=== PATIENT | female | born 1950 | race Hispanic/Latino ===

== ENCOUNTER 2021-08-19 23:15 | Inpatient (IN) | payer OTHER ==
--- OUTSIDE RECORDS SUMMARY | 2021-08-20 00:35 | XMS REPORT | Continuity of Care Document ---
:1950 Author Organization [facility] t Address [address] [place] [address] Care Team Providers Name Role Phone Pcp-None Primary Care Physician Unavailable SAL Attending Clinician Unavailable AMBIKA Attending Clinician Unavailable ANA LUISA Attending Clinician Unavailable Leslie Finnegan Attending Clinician Unavailable IHDE_G Attending Clinician Unavailable Ninfa_laxmi Attending Clinician Unavailable Doctor Unassigned, Name Attending Clinician Unavailable Ninfa VERA Attending Clinician Noe LINN Attending Clinician Unavailable Mukul MENDOZA Attending Clinician Unavailable DR DAYTON Attending Clinician Unavailable Tone MENDOZA, Jenny Attending Clinician Bart LINN Attending Clinician Unavailable Laura Hoffman Attending Clinician Laura CANAS Attending Clinician Unavailable Robby Attending Clinician Unavailable MELVI Attending Clinician Unavailable SAL Admitting Clinician Unavailable AMBIKA Admitting Clinician Unavailable MD Rebekah SANDS Admitting Clinician Unavailable ANA LUISA Admitting Clinician Unavailable Leslie Finnegan Admitting Clinician Unavailable IHDE_G Admitting Clinician Unavailable Obken_laxmi Admitting Clinician Unavailable DR DAYTON Admitting Clinician Unavailable MELVI Admitting Clinician Unavailable Payers Payer Name Policy Type Policy Number Effective Date Expiration Date S chauncey [place] [id number] 2013 [employer] 00:00:00 - RHC - FQHC [place]: [id number] 2013 [employer] 00:00:00 Problems Condition Condition Condition Status Onset Resolution Last Treating Co mments Source Name Details Category Date Date Treatment Clinician Date Automatic Automatic Problem Active [place] implantabl Implantabl 2-12 da e cardiac e Cardiac 00:00: Epis manager copy defibrilla Defibrilla 00 al tor in tor in Health situ Situ Outreac h Program Anemia in Anemia in Problem Active [place] chronic Chronic 2-10 da kidney Kidney 00:00: [facility] disease Disease 00 al [facility] Hemodialys Hemodialys Problem Active [facility] is is 8-01 da 00:00: [facility] Hypertensi Hypertensi Problem Active [facility] [place] ve end ve End 8-01 da stage Stage 00:00: [facility] renal Renal 00 al disease Disease Health Outreac h Program CKD CKD Disease Active Overview: Method i (chronic (chronic 6-[address] kidney kidney 00:00: g of this Hospita disease) disease) 00 note l stage 4, stage 4, might be GFR 15-29 GFR 15-29 different ml/min ml/min from the original. Added automatic ally from request for surgery [id number] Nuclear Nuclear Problem Active [place] sclerotic Sclerotic 5-26 da cataract Cataract 00:00: [facility] 00 al [facility] Hypermetro Hypermetro Problem Active [facility] [place] erika erika 5-26 da 00:00: [facility] 00 [facility] Regular Regular Problem Active [place] astigmatis Astigmatis 5-26 da m m 00:00: [facility] Presbyopia Presbyopia Problem Active 2020-0 M [facility] 5-26 da 00:00: [facility] 00 [facility] Bilateral Bilateral Problem Active [place] primary Primary 5-26 da open angle Open Angle 00:00: [facility] glaucoma Glaucoma 00 al Health Outreac h Program Perennial Perennial Problem Active [place]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 4-15 da rhinitis Rhinitis 00:00: [facility] with with 00 al seasonal Seasonal Health variation Variation Outr eac h Program Diabetes Diabetes Problem Active [place] mellitus Mellitus da [facility] Hyperlipid Hyperlipid Problem Active [facility] emia emia da [facility] Obesity Obesity Problem Active [place] [facility] No known No known Disease Unive rs active active ity of problems problems [facility] Allergies, Adverse Reactions, Alerts Allergy Allergy Status Severity Reaction(s) Onset Inactive Treating Comm ents Source Name Type Date Date Clinician [place] DA Active Unknown [place] ins 7 Medical 00:00: [place] 00 [place] Propensi Active Other (See Numbing M ethodi ins ty to Comments) 6-[address] adverse 00:00: Hospita reaction 00 l s to drug [facility] Drug Active Swelling 2020-0 Univer s in Allergy 5-25 ity of 00:00: [address] PENICILL DRUG Active Swelling 0 Univer s IN INGREDI 5-25 ity of 00:00: [address] No Known DA Active [facility] Allergy Active Mild Other [place] INS to da substanc [facility] NO KNOWN Drug Active Univers ALLERGIE Class ity of S [facility] Social History Social Habit Start Date Stop Date Quantity Comments Source History of Smoker University of tobacco use [facility] [place] History SDOH University o f Alcohol Frequency [facility] edical Branch History SDOH University o f Alcohol Std [facility] History [facility] University o f Alcohol Binge [facility] al [place] Tobacco use and 2020-07-22 2020-07-22 Never used Universit y of exposure 00:00:00 00:00:00 [facility] Alcohol intake 2020-07-22 2020-07-22 Ex-drinker University of 00:00:00 00:00:00 (finding) [facility] Alcohol Comment 2020-07-22 2020-07-22 quit [facility] y of 00:00:00 00:00:00 [facility] Sex Ass[birth year] [facility] y of 00:00:00 00:00:00 [facility] Smoking Status Start Date Stop Date Source Unknown if ever smoked [facility] Former smoker 2020-07-22 00:00:00 2020-07-22 00:00:00 [facility] Medications Ordered Filled Start Stop Current Ordering Indication Dosage Frequency Signature Comments Components Source Medication Medication Date Date Medication? Clinician (SIG) Name Name timolol Yes timolol [facility] (TIMOPTIC) 6-[address] 0.5 % 18:21: 0.5 % eye Hospita ophthalmic 10 drops l solution INSTILL 1 GTT OU IN THE MORNING isosorbide Yes isosorbide M ethodi mononitrate -[address] (IMDUR) 60 18:21: e ER 60 mg H ospita MG 24 hr 10 tablet,ext l tablet ended release 24 hr TAKE 1 TABLET BY MOUTH ONCE DAILY FOR HIGH BLOOD PRESSURE multivitami Yes 1{tbl} Take 1 Me thodi n-Ca-iron-m 6-[address] inerals 18:21: mouth. Hospita tablet 10 l lovastatin Yes lovastatin M ethodi (MEVACOR) 6-[address] 40 mg 18:21: tablet Hospita tablet 10 TAKE TWO l (2) TABLETS EVERY DAY BY ORAL ROUTE AT BEDTIME. clopidogreL Yes clopidogre [facility] (PLAVIX) 75 6-[address] mg tablet 18:21: tablet Hospit a 10 TAKE 1 l TABLET BY MOUTH ONCE DAILY FOR ANTIPLATEL ET aspirin Yes 81mg Take 81 mg Meth eveline (ECOTRIN) 6-[address] 81 MG 18:21: Hospita enteric 10 l coated tablet SITagliptin Yes Januvia Met hodi (Januvia) 6-[address] 100 MG 18:21: tablet Hospita tablet 10 Take 1 l tablet(s) every day by oral route. aspirin 81 aspirin 81 No 81mg aspirin 81 [place] mg mg 6-16 mg da tablet,cristina tablet,cristina 00:00: tablet,del [facility] yed release yed release 00 ayed a l 81 mg by 81 mg by release He alth oral route. oral route. 81 mg by Outreac oral h route. Program No known No Univers medications 5-26 ity of 17:39: [address] No known No Univers medications - ity of 17:39: [address] No known No Univers medications - ity of 17:39: [address] hydrALAZINE Yes hydralazin [facility] (APRESOLINE 5-[address] ) 25 MG 00:00: tablet Hospita tablet 00 TAKE 1 l TABLET BY MOUTH THREE TIMES DAILY furosemide Yes furosemide M ethodi (LASIX) 40 2-[address] mg tablet 00:00: tablet Hospit a 00 TAKE 1 l TABLET BY MOUTH EVERY 8 HOURS FOR CHF NIFEdipine 2018-02 Yes 90mg Take 90 mg M ethodi CC (ADALAT 1-[address] CC) 90 MG 00:00: Hospita 24 hr 00 l tablet linaGLIPtin Yes Tradjenta M ethodi (Tradjenta) 8-[address] 5 mg tablet 00:00: tablet Hosp gomez 00 TAKE 1 l TABLET EVERY DAY FOR DIABETES atorvastati atorvastati No 1 Q1D atorvastat [place] n 20 mg n 20 mg in 20 mg da tablet Take tablet Take tablet [facility] 1 tablet 1 tablet Take 1 al every day every day tablet Hea lth by oral by oral every day Outr eac route for route for by oral h 30 days. 30 days. route for Pr ogram 30 days. clopidogrel clopidogrel No clopidogre [place] 75 mg 75 mg l 75 mg da tablet TAKE tablet TAKE tablet [facility] 1 TABLET BY 1 TABLET BY TAKE 1 al MOUTH ONCE MOUTH ONCE TABLET BY Health DAILY FOR DAILY FOR MOUTH ONCE Outreac ANTIPLATELE ANTIPLATELE DAILY FOR h T T ANTIPLATEL Program ET Januvia 50 Januvia 50 No 1 Q1D Januvia 50 [place] mg tablet mg tablet mg tablet da Take 1 Take 1 Take 1 [facility] tablet tablet tablet al every day every day every day Health by oral by oral by oral Outrea c route. route. route. h Program lisinopril lisinopril No lisinopril [place] 2.5 mg 2.5 mg 2.5 mg da tablet TAKE tablet TAKE tablet [facility] 1 TABLET BY 1 TABLET BY TAKE 1 al MOUTH ONCE MOUTH ONCE TABLET BY Health DAILY FOR DAILY FOR MOUTH ONCE Outreac HIGH BLOOD HIGH BLOOD DAILY FOR h PRESSURE PRESSURE HIGH BLOOD P rogram PRESSURE metoprolol metoprolol No metoprolol [place] tartrate 25 tartrate 25 tartrate da mg tablet mg tablet 25 mg Epis manager copy TAKE 1 2 TAKE 1 2 tablet al (ONE HALF) (ONE HALF) TAKE 1 2 Health TABLET BY TABLET BY (ONE HALF) Outreac MOUTH TWICE MOUTH TWICE TABLET BY h DAILY FOR DAILY FOR MOUTH Prog geoffrey HYPERTENSIO HYPERTENSIO TWICE N N DAILY FOR HYPERTENSI ON multivitami multivitami No multivitam [place] n 1 tab po n 1 tab po in 1 tab da daily daily po daily [facility] Novolin Novolin No Novolin [place] 70/30 U-100 70/30 U-100 70/30 da Insulin 100 Insulin 100 U-100 [facility] unit/mL unit/mL Insulin al subcutaneou subcutaneou 100 H ealth s s unit/mL Outreac suspension suspension subcutaneo h INJECT 15 INJECT 15 us Progr am UNITS UNITS suspension SUBCUTANEOU SUBCUTANEOU INJECT 15 SLY TWICE SLY TWICE UNITS DAILY FOR DAILY FOR SUBCUTANEO DM2 DM2 USLY TWICE DAILY FOR DM2 trazodone trazodone No trazodone [place] 50 mg 50 mg 50 mg da tablet TAKE tablet TAKE tablet [facility] 1 TABLET BY 1 TABLET BY TAKE 1 al MOUTH ONCE MOUTH ONCE TABLET BY Health DAILY AT DAILY AT MOUTH ONCE O utrea NIGHT NIGHT DAILY AT h NIGHT Program vitamin B vitamin B No vitamin B [place] complex 1 complex 1 complex 1 da tab po QD tab po QD tab po QD [facility] Vitamin D3 Vitamin D3 No Vitamin D3 [place] 1 tab po 1 tab po 1 tab po da daily daily daily [facility] Immunizations Ordered Immunization Filled Immunization Date Status Commen ts Source Name Name Hep B, adult Hep B, adult 2021-01-30 Completed [place] 09:49:37 [facility] pneumococcal pneumococcal 2020-11-28 Completed [place] conjugate PCV 13 conjugate PCV 13 00:00:00 [facility] influenza, influenza, 2020-11-28 Completed [place] injectable, injectable, 00:00:00 [facility] Hep B, adult Hep B, adult 2020-08-27 Completed [place] 15:41:37 [facility] Hep B, adult Hep B, adult 2020-07-23 Completed [place] 14:52:22 [facility] influenza, influenza, 2016-11-28 Completed [place] injectable, injectable, 00:00:00 [facility] pneumococcal pneumococcal 2012-03-12 Completed [place] polysaccharide PPV23 polysaccharide PPV23 00:00:00 [facility] Vital Signs Vital Name Observation Time Observation Value Comments Source Height 2021-07-07 00:00:00 66 [in_i] [place] [facility] BMI (Body Mass 2021-07-07 00:00:00 32.8 kg/m2 [place] 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 Index) [facility] Body Weight 2021-07-07 00:00:00 203 [lb_av] [place] [facility] BP Diastolic 2021-04-30 00:00:00 76 mm[Hg] [place] [facility] Height 2021-04-30 00:00:00 66 [in_i] [place] [facility] BMI (Body Mass 2021-04-30 00:00:00 32.8 kg/m2 [place] 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 Index) [facility] BP Systolic 2021-04-30 00:00:00 146 mm[Hg] [place] [facility] Body Weight 2021-04-30 00:00:00 3248 [oz_av] [place] [facility] BP Diastolic 2021-04-21 00:00:00 72 mm[Hg] [place] [facility] Height 2021-04-21 00:00:00 66 [in_i] [place] [facility] BMI (Body Mass 2021-04-21 00:00:00 33 kg/m2 [place] 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 Index) [facility] BP Systolic 2021-04-21 00:00:00 132 mm[Hg] [place] [facility] Body Weight 2021-04-21 00:00:00 3270 [oz_av] [place] [facility] BP Diastolic 2021-01-29 00:00:00 85 mm[Hg] [place] [facility] Height 2021-01-29 00:00:00 66 [in_i] [place] [facility] BMI (Body Mass 2021-01-29 00:00:00 32.4 kg/m2 [place] 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 Index) [facility] BP Systolic 2021-01-29 00:00:00 149 mm[Hg] [place] [facility] Body Weight 2021-01-29 00:00:00 3216 [oz_av] [place] [facility] BP Diastolic 2020-12-16 00:00:00 93 mm[Hg] [place] [facility] Height 2020-12-16 00:00:00 66 [in_i] [place] [facility] BMI (Body Mass 2020-12-16 00:00:00 33.5 kg/m2 [place] 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 Index) [facility] BP Systolic 2020-12-16 00:00:00 156 mm[Hg] [place] [facility] Body Weight 2020-12-16 00:00:00 3321.6 [oz_av] [place] 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 [facility] BP Diastolic 2020-12-02 00:00:00 84 mm[Hg] [place] [facility] Height 2020-12-02 00:00:00 66 [in_i] [place] [facility] BMI (Body Mass 2020-12-02 00:00:00 33.9 kg/m2 [facility] 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 Index) [facility] BP Systolic 2020-12-02 00:00:00 147 mm[Hg] [place] [facility] Body Weight 2020-12-02 00:00:00 3360 [oz_av] [place] [facility] BP Diastolic 2020-10-02 00:00:00 73 mm[Hg] [place] [facility] Height 2020-10-02 00:00:00 66 [in_i] [place] [facility] BMI (Body Mass 2020-10-02 00:00:00 36 kg/m2 [facility] 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 Index) [facility] BP Systolic 2020-10-02 00:00:00 123 mm[Hg] [place] [facility] Body Weight 2020-10-02 00:00:00 3568 [oz_av] [place] [facility] Weight 2020-09-09 06:14:00 102.05 KG Weight 2020-09-08 06:14:00 101.65 KG Weight 2020-09-07 04:23:00 101.83 KG Height 2020-09-05 10:21:00 165.1 CM Height 2020-09-04 23:51:00 2.54 CM Height 2020-09-03 10:00:00 165.1 CM Weight 2020-09-03 03:38:00 106.14 KG BP Diastolic 2020-06-02 00:00:00 75 mm[Hg] [place] [facility] Height 2020-06-02 00:00:00 66 [in_i] [place] [facility] BMI (Body Mass 2020-06-02 00:00:00 36.2 kg/[facility]2 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 BP Systolic 2020-06-02 00:00:00 154 mm[Hg] [place] [facility] Body Weight 2020-06-02 00:00:00 3584 [oz_av] [place] [facility] BP Diastolic 2020-04-25 00:00:00 71 mm[Hg] [place] [facility] Height 2020-04-25 00:00:00 66 [in_i] [place] [facility] BMI (Body Mass 2020-04-25 00:00:00 37.8 kg/m2 [place] 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 Index) [facility] BP Systolic 2020-04-25 00:00:00 136 mm[Hg] [place] [facility] Body Weight 2020-04-25 00:00:00 3744 [oz_av] [place] [facility] BP Diastolic 2020-03-04 00:00:00 60 mm[Hg] [place] [facility] Height 2020-03-04 00:00:00 66 [in_i] [place] [facility] BMI (Body Mass 2020-03-04 00:00:00 38.3 kg/m2 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 BP Systolic 2020-03-04 00:00:00 140 mm[Hg] [place] [facility] Body Weight 2020-03-04 00:00:00 3792 [oz_av] [place] [facility] BP Diastolic 2019-12-14 00:00:00 76 mm[Hg] [place] [facility] Height 2019-12-14 00:00:00 66 [in_i] [place] [facility] BMI (Body Mass 2019-12-14 00:00:00 40.7 kg/m2 [place] 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 Index) [facility] BP Systolic 2019-12-14 00:00:00 148 mm[Hg] [place] [facility] Body Weight 2019-12-14 00:00:00 4032 [oz_av] [place] [facility] BP Diastolic 2019-09-14 00:00:00 72 mm[Hg] [place] [facility] Height 2019-09-14 00:00:00 66 [in_i] [place] [facility] BMI (Body Mass 2019-09-14 00:00:00 39.8 kg/m2 [place] 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 Index) [facility] BP Systolic 2019-09-14 00:00:00 138 mm[Hg] [place] [facility] Body Weight 2019-09-14 00:00:00 3942 [oz_av] [place] [facility] Height 2019-07-24 00:00:00 66 [in_i] [place] [facility] BMI (Body Mass 2019-07-24 00:00:00 41.5 kg/m2 [place] 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 Index) [facility] Body Weight 2019-07-24 00:00:00 257 [lb_av] [place] [facility] BP Diastolic 2019-06-13 00:00:00 70 mm[Hg] [place] [facility] Height 2019-06-13 00:00:00 66 [in_i] [place] [facility] BMI (Body Mass 2019-06-13 00:00:00 41.6 kg/m2 [place] 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 Index) [facility] BP Systolic 2019-06-13 00:00:00 130 mm[Hg] [place] [facility] Body Weight 2019-06-13 00:00:00 257.8 [lb_av] [place] [facility] BP Diastolic 2019-03-07 00:00:00 80 mm[Hg] [place] [facility] Height 2019-03-07 00:00:00 66 [in_i] [place] [facility] BMI (Body Mass 2019-03-07 00:00:00 39.9 kg/m2 [place] 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 Index) [facility] BP Systolic 2019-03-07 00:00:00 140 mm[Hg] [place] [facility] Body Weight 2019-03-07 00:00:00 247 [lb_av] [place] [facility] BP Diastolic 2019-01-16 00:00:00 68 mm[Hg] [place] [facility] Height 2019-01-16 00:00:00 66 [in_i] [place] [facility] BMI (Body Mass 2019-01-16 00:00:00 42.6 kg/m2 [place] 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 Index) [facility] BP Systolic 2019-01-16 00:00:00 136 mm[Hg] [place] [facility] Body Weight 2019-01-16 00:00:00 264 [lb_av] [place] [facility] Systolic blood 2020-08-13 18:05:00 163 mm[Hg] [facility] pressure Diastolic blood 2020-08-13 18:05:00 77 mm[Hg] [facility] pressure Heart rate 2020-08-13 18:05:00 66 /min [facility] Body temperature 2020-08-13 18:05:00 36.56 [facility] Body height 2020-08-13 18:05:00 167.6 cm [facility] Body weight 2020-08-13 18:05:00 101.152 kg [facility] BMI 2020-08-13 18:05:00 35.99 kg/m2 [facility] Oxygen saturation in 2020-08-13 18:05:00 97 /min [facility] Arterial blood by Pulse oximetry Procedures Procedure Date / Time Performing Clinician Source Performed EXTERNAL PROVIDER RECORDS 2020-11-23 05:01:00 Doctor Unassigned, [facility] REFERRAL- REQUEST/RESPONSE 2020-10-16 05:01:00 Doctor Unassigned , [facility] INSERTION INFUS DEVC RT 2020-09-09 00:00:00 [facility] Medical [facility] RESPIRATORY VENT [id number] 2020-09-03 00:00:00 [facility] Medical CONSEC HOURS Center MAMMO, screening, 2019-03-07 00:00:00 [facility] Cholecystectomy [facility] Plan of Care Planned Activity Planned Date Details Comments Source Future Scheduled Test DIABETES: RETINAL EYE [facility] EXAM [code = DIABETES: RETINAL EYE EXAM] Future Scheduled Test DIABETIC FOOT EXAM [facility] [code = DIABETIC FOOT EXAM] Future Scheduled Test COVID-19 VACCINE (1) [facility] [code = COVID-19 VACCINE (1)] Future Scheduled Test Hepatitis C screening [facility] (procedure) [code = 007131109] Future Scheduled Test BREAST CANCER SCREENING [facility] [code = BREAST CANCER SCREENING] Future Scheduled Test COLONOSCOPY SCREENING [facility] [code = COLONOSCOPY SCREENING] Future Scheduled Test SHINGLES VACCINES (#1) [facility] [code = SHINGLES VACCINES (#1)] Future Scheduled Test 65+ PNEUMOCOCCAL [facility] VACCINE (2 of 4 - PPSV23) [code = 65+ PNEUMOCOCCAL VACCINE (2 of 4 - PPSV23)] Future Scheduled Test INFLUENZA VACCINE [code [facility] = INFLUENZA VACCINE] Encounters Start End Encounter Admission Attending Care Care Encounter Source Date/Time Date/Time Type Type Clinicians Facility Department ID 2021-07-31 2021-07-31 Outpatient YONY CRISTINA MEHOP [id number] 05:21:00 05:21:00 _ANN [id number] [facility] 2021-07-28 2021-07-28 Outpatient [facility] [id number] 00:00:00 00:00:[address] 2021-07-07 2021-07-07 Outpatient SHIMEK_[place] [id number] [place] 02:14:00 02:14:00 _ANN 0510 [facility] 2021-07-07 2021-07-07 Emy [facility] - [id number] [place] 00:00:00 00:00:00 Liudmila Medeiros MD: [address], [facility] [place] [facility] [place], [place] Eye [facility] [id number] [facility] , Ph. h ([phone]) Program 2021-06-23 2021-06-23 [id number] 00:00:00 00:00:00 KYLE 768 [address] i 2021-06-18 2021-06-18 Outpatient AMBIKA [facility] [id number] 00:00:00 00:00:00 KYLE 871 Method i 2021-06-18 2021-06-18 Outpatient AMBIKA [facility] [id number] 00:00:00 00:00:00 KYLE 397 Method i 2021-06-11 2021-06-11 Outpatient DIYA_FANNY [place] [id number] [place] 09:42:00 09:42:00 _ANN 0414 [facility] 2021-06-11 2021-06-11 Outpatient AMBIKA [facility] [id number] [place] 00:00:00 00:00:00 KYLE 113 Method i 2021-05-19 2021-05-19 Outpatient DIYA_FANNY [place] [id number] [place] 12:40:00 12:40:00 _ANN 0406 [facility] 2021-05-08 2021-05-08 Outpatient DIYA_FANNY [facility] [id number] [place] 11:22:00 11:22:00 _ANN 0317 [facility] 2021-04-30 2021-04-30 Outpatient DIYA_FANNY [facility] [id number] [place] 02:38:00 02:38:00 _ANN 0303 [facility] 2021-04-30 2021-04-30 Fanny Lyons C[place]ST[place] - 3 [place] 00:00:00 00:00:00 Liudmila Eduardo da LICENSED PHYSICAL THERAPY ASSISTANT: [address] [facility] [place] [facility] [place] [id number] h , Ph. Program 2021-04-21 2021-04-21 Outpatient GILBERT_KAT [place] [id number] [place] 02:15:00 02:15:00 IE 0302 [facility] 2021-04-21 2021-04-21 Outpatient GILBERT_KAT [place] [id number] [place] 02:11:00 02:11:00 IE 0222 [facility] 2021-04-21 2021-04-21 Fanny Lyons [place] - [id number] [place] 00:00:00 00:00:00 Liudmila Eduardo da LICENSED PHYSICAL THERAPY ASSISTANT: [address] [facility] [place] 3 [place] [address] h , Ph. Program 2021-02-28 2021-02-28 Outpatient [place]HDE_[place] [id number] [place] 03:03:00 03:03:00 0101 [facility] 2021-02-02 2021-02-02 Outpatient GILBERT_KAT [place] [address] [place] 04:02:00 04:02:00 IE [facility]6 [facility] 2021-02-02 2021-02-02 Outpatient GILBERT_KAT [place] [address] [place] 04:02:00 04:02:00 IE 0217 [facility] 2021-01-29 2021-01-29 Outpatient Obisesan_ad ARHOP [facility] 87 [place] 07:22:00 07:22:00 ekunbi 1202 [facility] 2021-01-29 2021-01-29 [facility] [place] - [id number] [place] 00:00:00 00:00:00 Liudmila Wallace REFRACTORY REPAIRER-LICENSED PHYSICAL THERAPY ASSISTANT-C: Faith Epi scop 1700 [facility] [address] [facility] , Ph. 2021-01-24 2021-01-24 Outpatient IHDE_G MMG MMG [id number] 021 [place] 02:21:00 02:21:00 1127 Medical Group 2020-12-31 2021-01-01 Outpatient [facility] [id number] [place] 00:00:00 00:00:00 KYLE Stafford [facility] 2020-12-20 2020-12-20 Outpatient IHDE_G MMG MMG [id number] 021 [place] 03:45:00 03:45:00 1023 Medical Group 2020-12-16 2020-12-16 Outpatient Obisesan_ad [place] [address] [place] 04:47:00 04:47:00 ekunbi 1019 [facility] 2020-12-16 2020[facility]12-[facility] [place] [facility] [id number] [place] 00:00:00 00:00:00 Liudmila Ocasio LICENSED PHYSICAL THERAPY ASSISTANT: 1700 [facility] [address] h , Ph. Program 2020-12-12 2020-12-12 Outpatient Obisesan_ad [place] [address] [place] 05:47:00 05:47:00 ekunbi 1015 [facility] 2020-12-02 2020-12-02 Outpatient Obisesan_ad [place] [address] [place] 05:29:00 05:29:00 ekunbi 1005 [facility] 2020-12-02 2020-12-02 [facility] [place] [facility] [id number] [place] 00:00:00 00:00:00 Liudmila Ocasio LICENSED PHYSICAL THERAPY ASSISTANT: 1700 [facility] [address] [facility] , Ph. Program 2020-11-23 2020-11-23 Orders Doctor GORDON 1.2.840.114 [id number] Univers 00:00:00 00:00:00 Only Unassigned, PATY 350.1.13.10 ity of [place] [facility] 4.2.7.2.686 [place] as [id number] [facility] 009 Branch 2020-11-19 2020-11-19 Letter HEIDI Ocasio 1.2.994.206 [id number] [facility] 00:00:00 00:00:00 (Out) Laxmi NEWMAN 350.1.13.10 i ty of HOSPITAL 4.2.7.2.686 [place] as [id number] [facility] 043 Branch 2020-10-28 2020-10-28 Telephone Liu, 1.2.840.1 [id number] Methodi 00:00:00 00:00:[address] 3.430.2.7 Hospit a .3.087394 l .8 2020-10-23 2020-10-23 Telephone Mukul, 1.2.840.1 [id number] Methodi 00:00:00 00:00:[address] 3.430.2.7 Hospit a .3.520270 l .8 2020-10-17 2020-10-17 Outpatient IHDE_G MMG MMG [id number] 021 [place] 11:33:00 11:33:00 0927 [facility] 2020-10-17 2020-10-17 Outpatient IHDE_G MMG MMG [id number] 021 [place] 11:33:00 11:33:00 0820 [facility] 2020-10-16 2020-10-16 Orders Doctor GORDON 1.2.840.114 [id number] Univers 00:00:00 00:00:00 Only Unassigned, PATY 350.1.13.10 ity of [place] [facility] 4.2.7.2.686 [facility] as [id number] [address] 2020-10-14 2020-10-14 Outpatient Obisesan_ad [place] [address] [place] 09:34:00 09:34:00 ekunbi 0817 [facility] 2020-10-13 2020-10-13 Outpatient Obisesan_ad [place] [address] [place] 03:59:00 03:59:00 ekunbi 0816 [facility] 2020-10-02 2020-10-02 Outpatient Obisesan_ad [place] [address] [place] 04:22:00 04:22:00 ekunbi 0805 [facility] 2020-10-02 2020-10-02 Adekunbi [facility] - [id number] [place] 00:00:00 00:00:00 Liudmila Ocasio da 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 Program 2020-09-24 2020-09-24 Outpatient Obisesan_ad [place] [address] [place] 03:16:00 03:16:00 ekunbi 0728 [facility] 2020-09-09 2020-09-09 Telephone Gilman, 1.2.840.1 [id number] Methodi 00:00:00 00:00:00 Bouchra 42214.1.1 914 3.430.2.7 Hospit a .3.769958 l .8 2020-09-03 2020-09-03 Outpatient Obisesan_ad [place] [address] [place] 01:18:00 01:18:00 ekunbi 0707 [facility] 2020-09-02 2020-09-02 Outpatient Obisesan_ad MEHOP [facility] 876 [place] 10:14:00 10:14:00 ekunbi 0706 [facility] 2020-08-27 2020-08-27 Outpatient Obisesan_ad MEHOP AR[facility]OP 876 [place] 05:50:00 05:50:00 ekunbi 0630 [facility] 2020-08-27 2020-08-27 Adekunbi [place] - [id number] [place] 00:00:00 00:00:00 ObLiudmila rogers da LICENSED PHYSICAL THERAPY ASSISTANT: 1700 [facility] [place], [place], [place] Outre [address] h , Ph. Program 2020-08-22 2020-08-22 Outpatient Obisesan_ad MEHOP ARHOP 876 [place] 04:45:00 04:45:00 ekunbi 0625 [facility] 2020-08-18 2020-08-18 Telephone Mukul, 1.2.840.1 [id number] 21 [id number] Methodi 00:00:00 00:00:[address] 3.430.2.7 Hospit a .3.196829 l .8 2020-08-15 2020-08-15 Outpatient Obisesan_ad ARHOP [facility] 87 [place] 06:46:00 06:46:00 ekunbi 0618 [facility] 2020-08-13 2020-08-13 Office Wayne, 1.2.840.1 [id number] Methodi 13:06:24 14:03:21 Visit Elsa 02784.1.[address] [place] 3.430.2.7 Hosp gomez .3.378210 l .8 2020-08-13 2020-08-13 Prep for Mukul 1.2.840.1 [id number] [id number] Methodi 00:00:00 00:00:00 Surgery Bouchra [address]265.1.[address] 3.430.2.7 Hospit a .3.287814 l .8 2020-08-13 2020-08-13 Travel 1.2.840.1 1.2.422.172 [id number] Methodi 00:00:00 00:00:[address] 3.430.2.7 0.2.7.3.698 Ho spita .3.128476 084.8 l .8 2020-08-12 2020-08-12 Outpatient Obisesan_ad [place] [address] [place] 09:12:00 09:12:00 ekunbi 0615 [facility] 2020-07-30 2020-07-30 Anurag Arriaga, 1.2.840.1 [id number] Methodi 00:00:00 00:00:00 Only Crysandria 03525.1.1 200 s t 3.430.2.7 Hospit a .3.566701 l .8 2020-07-23 2020-07-23 Outpatient Obisesan_ad [place] [address] [place] 05:43:00 05:43:00 ekunbi 0526 [facility] 2020-07-23 2020-07-23 Outpatient Obisesan_ad [place] [address] [place] 05:43:00 05:43:00 ekunbi 0528 [facility] 2020-07-23 2020-07-23 [facility] [place] [facility] [id number] M [place] 00:00:00 00:00:00 Liudmila Ni MD: 1700 [facility] Romo, [place], [place] Outre [address] h , Ph. Program 2020-07-22 2020-07-22 Office Canas, [facility] 1.2.840.114 [id number] 13:18:19 13:48:19 Visit [facility] 350.1.13.10 [facility] 4.2.7.2.686 [id number] 2020-07-22 2020-07-22 Outpatient R NORMA, [facility] [id number] Univers 13:45:00 13:45:[address] [facility] 2020-07-22 2020-07-22 [facility] [id number] Univers 00:00:00 00:00:[address] [facility] 2020-07-22 2020-07-22 Orders Arriaga, 1.2.840.1 [id number] Methodi 00:00:00 00:00:00 Only [place] 67476.1.1 095 s t 3.430.2.7 Hospit a .3.137707 l .8 2020-07-17 2020-07-17 Telephone Robby, 1.2.840.1 [id number] Methodi 00:00:00 00:00:[address] 3.430.2.7 Hospit a .3.633767 l .8 2020-07-17 2020-07-17 Orders Arriaga, 1.2.840.1 [id number] Methodi 00:00:00 00:00:00 Only [place] 59168.1.1 881 s t 3.430.2.7 Hospit a .3.030107 l .8 2020-06-20 2020-06-20 Outpatient Obisesan_ad [place] [address] [place] 03:14:00 03:14:00 ekunbi 0524 [facility] 2020-06-02 2020-06-02 Outpatient Obisesan_ad [place] [address] [place] 04:38:00 04:38:00 ekunbi 0405 [facility] 2020-06-02 2020-06-[address] [facility] [place] [facility] [id number] [place] 00:00:00 00:00:00 Liudmila Ocasio da LICENSED PHYSICAL THERAPY ASSISTANT: [address] [facility] [address], [facility] [address] h , Ph. Program 2020-04-25 2020-04-25 Outpatient Obisesan_ad ARHOP AR[facility]OP 87 [place] 04:46:00 04:46:00 ekunbi 0226 [facility] 2020-04-25 2020-04-[address] [facility] [place] - [id number] [place] 00:00:00 00:00:00 Liudmila Ocasio da LICENSED PHYSICAL THERAPY ASSISTANT: 1700 [facility] [address], [place], [place] Outre [address] h , Ph. Program 2020-04-05 2020-04-05 Outpatient Obisesan_ad ARHOP ARHOP 876 [place] 03:43:00 03:43:00 ekunbi 0206 [facility] 2020-03-19 2020-03-19 Outpatient [facility] 8769 [place] 12:56:00 12:56:00 0120 [facility] 2020-03-05 2020-03-05 Outpatient NEESE_HEIDI AR[facility]OP AR[facility]OP 8769 [place] 08:56:00 08:56:00 0106 [facility] 2020-03-04 2020-03-04 Outpatient NEESE_HEIDI MATHEWHOP ARHOP 8769 [place] 05:26:00 05:26:00 0105 [facility] 2020-03-04 2020-03-04 Laxmi [facility] [place] - [id number] [place] 00:00:00 00:00:00 Liudmila Ocasio da LICENSED PHYSICAL THERAPY ASSISTANT: 17[address] [facility] [address], [facility] [address] h , Ph. Program 2020-01-14 2020-01-14 Outpatient NEESE_HEIDI [place] 8769 [place] 06:23:00 06:23:00 0104 [facility] 2019-12-28 2019-12-28 Outpatient NEESE_HEIDI EVANS 8769 [place] 07:45:00 07:45:00 1030 [facility] 2019-12-14 2019-12-14 Outpatient NEESE_HEIDI EVANS 8769 [place] 04:34:00 04:34:00 1016 [facility] 2019-12-14 2019-12-14 Heidi EVANS [place] - [id number] [place] 00:00:00 00:00:00 FLORA Abel: Liudmila lyons [address] [facility] [address] h , Ph. Program 2019-09-14 2019-09-14 Outpatient NEESE_HEIDI [place]ANS 8769 [place] 02:57:00 02:57:00 0717 [facility] 2019-09-14 2019-09-14 Heidi EVANS [place] - [id number] [place] 00:00:00 00:00:00 FLORA Abel: Liudmila lyons [address] [facility] [place] [address] h , Ph. Program 2019-08-12 2019-08-12 Outpatient NEESE_HEIDI EVANS 8769 [place] 12:18:00 12:18:00 0614 [facility] 2019-07-24 2019-07-24 Outpatient NEESE_HEIDI EVANS 8769 [place] 05:19:00 05:19:00 0526 [facility] 2019-07-24 2019-07-24 Emy EVANS [place] - [id number] [place] 00:00:00 00:00:00 Liudmila Medeiros MD: [address], [facility] [place], [place] Eye [facility] [address] [facility] , Ph. h (979) Program 2019-07-09 2019-07-09 Outpatient NEESE_HEIDI EVANS [id number] 0 [place] 10:29:00 10:29:00 0511 [facility] 2019-07-09 2019-07-09 Outpatient NEESE_HEIDI EVANS 8769 0 [place] 10:29:00 10:29:00 0522 [facility] 2019-06-13 2019-06-13 Outpatient NEESE_HEDII EVANS 8769 0 [place] 11:55:00 11:55:00 0415 [facility] 2019-06-13 2019-06-13 Outpatient NEESE_HEIDI EVANS 8769 0 [place] 05:03:00 05:03:00 0416 [facility] 2019-06-13 2019-06-13 Heidi MATHEWBAKARI [place] - [id number] [place] 00:00:00 00:00:00 FLORA Abel: Liudmila lyons [address] [facility] [address], [place] [address] Out[place] [address] h , Ph. Program 2019-03-07 2019-03-07 Outpatient NEESE_HEIDI EVANS 8769 [place] 02:08:00 02:08:00 0108 [facility] 2019-03-07 2019-03-07 Heidi Charlie MATHE[place]BAKARI [place] - [id number] [place] 00:00:00 00:00:00 FLORA Abel: Liudmila lyons [address] [facility] [address], [facility] 3, [address] [address] [facility] , Ph. 2019-03-01 2019-03-01 Outpatient NEPRINCE_HEIDI EVANS [facility] 8769 [place] 12:30:00 12:30:00 0102 [facility] 2019-01-16 2019-01-16 Heidi EVANS [place] - [id number] [place] 00:00:00 00:00:00 FLORA Abel: Liudmila lyons [address] [facility] al A, [facility] [place] [address] [facility] am , Ph. Results Test Description Test Time Test Comments Results Result Comments Source SARS-CoV-2 (COVID-19) RNA [Presence] in Respiratory sp ecimen by 2021-06-18 18:39:45 BETTYE with probe detection Test Item Value Reference Range Interpretation Comme nts SARS-CoV-2 (COVID-19) RNA [Presence] in Respiratory specimen by Not detected BETTYE with probe detection (test code = 97129-3) Whether patient is employed in a healthcare setting (test code = Un known 64179-5) Whether the patient has symptoms related to condition of interest U nknown (test code = 17807-0) Whether the patient was hospitalized for condition of interest Unkn own (test code = 87161-3) Whether the patient was admitted to intensive care unit (ICU) for U nknown condition of interest (test code = 69383-6) Whether patient resides in a congregate care setting (test code = U nknown 32439-3) status (test code = 20727-3) Unknown Date and time of symptom onset (test code = 50772-3) Unknown Glucose [Mass/volume] in Capillary [id number] 11:00:54 Test Item Value Reference Range Interpretation Comments Blood Glucose: mg/dl (test code = Blood 158 Glucose: mg/dl) [facility] [Mass/volume] in Capillary [id number] 11:00:54 Test Item Value Reference Range Interpretation Comments Blood Glucose: mg/dl (test code = Blood 158 Glucose: mg/dl) [facility] ProgramGlucose [Mass/volume] in Capillary [id number] 11:00:54 Test Item Value Reference Range Interpretation Comments Blood Glucose: mg/dl (test code = Blood 158 Glucose: mg/dl) [facility] Outreach ProgramACID FAST AND STAIN [id number] 06:51:00 Test Item Value Reference Range Interpretation Comments SMEAR (test code = MYCOBAC TERIA, CULTURE, 03575039) WITH FLUOROCHRO ME SMEAR Micro Number: [id number] Test Status: Final Specimen Source : Sputum Specimen Qualit y: Adequate Smear: No acid fast bacilli se en. Result: No My cobacterium species isolate d after 6 weeks incubation.TEST PERFORMED AT:real trendsO [facility] [id number] [place] [address]BBUKE Mishel HOLBROOK MD GLUCOMETER GLUCOSE- LAB USE [id number] 16:04:00 Test Item Value Reference Range Interpretation Comments GLUCOMETER (test code = 292 mg/dL 70-100 H Mete r ID: GMG) [id number] tor: 3966 HELEN SHABANA U/S [id number] 15:53:07 [facility] : 1950 Sex: FEXAMINATION: NONTUNNELED CENTRAL VENOUS CATHETER PLACEMENT USING ULTRASOUND GUIDANCE.HISTORY: Need for IV antibiotics, request is made for central line, respiratory failure, pneumonia, obesity.COMPARISON: None.SEDATION: The patient did not require conscious sedation for the procedure.TECHNIQUE: The risks, benefits and alternatives were discussed and informed consent was obtained. Prior to beginning the procedure, [place] Protocol was used to confirm the patient's identity and planned procedure. Maximum sterile barriers including cap, mask, hand hygiene, sterile gloves, sterile gown, large steriledrape and cutaneous antisepsis were used. SITE: The skin over the right internal jugular vein was sterilely prepped, draped and infiltrated with 1% lidocaine. Prior to the procedure, the target vessel was evaluated by ultrasound. An image of the patent vessel was recorded and saved in PACS. After sterile prep, this vessel was accessed using realtime ultrasound guidance.A guidewire and catheter were t hen passed centrally. After dilating the tract, a 16 cm triple lumen central venous catheter was inserted over the guidewire. The catheter was flushed with saline and secured in place. A sterile dressing was applied. ESTIMATED BLOOD LOSS: less than 30 milliliters. DISCHARGED TO: Recovery and then to inpatient unit.CONDITION: Stable.FINDINGS: The post procedure chest x-ray image demonstrates the catheter with its tip in the right atrium. No complications are seen. IMPRESSION: Successful nontunneled triple lumen central venous catheter catheter placement via the right internal jugular vein.PLAN:The catheter is ready for immediate use. When treatment is completed, this catheter can be removed at the bedside according to standard hospital protocol.Electronically signed by: Dustin Vargas MD 09/09/2020 3:[address] [id number] 15:53:07 [facility] ESCOB[facility] : 1950 Sex: FEXAMINATION: NONTUNNELED CENTRAL VENOUS CATHETER PLACEMENT USING ULTRASOUND GUIDANCE.HISTORY: Need for IV antibiotics, request is made for central line, respiratory failure, pneumonia, obesity.COMPARISON: None.SEDATION: The patient did not require conscious sedation for the procedure.TECHNIQUE: The risks, benefits and alternatives were discussed and informed consent was obtained. Prior to beginning the procedure, [place] Protocol was used to confirm the patient's identity and planned procedure. Maximum sterile barriers including cap, mask, hand hygiene, sterile gloves, sterile gown, large steriledrape and cutaneous antisepsis were used. SITE: The skin over the right internal jugular vein was sterilely prepped, draped and infiltrated with 1% lidocaine. Prior to the procedure, the target vessel was evaluated by ultrasound. An image of the patent vessel was recorded and saved in PACS. After sterile prep, this vessel was accessed using realtime ultrasound guidance.A guidewire and catheter were t hen passed centrally. After dilating the tract, a 16 cm triple lumen central venous catheter was inserted over the guidewire. The catheter was flushed with saline and secured in place. A sterile dressing was applied. ESTIMATED BLOOD LOSS: less than 30 milliliters. DISCHARGED TO: Recovery and then to inpatient unit.CONDITION: Stable.FINDINGS: The post procedure chest x-ray image demonstrates the catheter with its tip in the right atrium. No complications are seen. IMPRESSION: Successful nontunneled triple lumen central venous catheter catheter placement via the right internal jugular vein.PLAN:The catheter is ready for immediate use. When treatment is completed, this catheter can be removed at the bedside according to standard hospital protocol.Electronically signed by: Dustin Vargas MD 09/09/2020 3:53 PM CDT CHEST 1 VIEW [id number] 15:40:27 [facility] ESCOB[facility] : 1950 Sex: FEXAMINATION: XR CHEST 1 VIEW.HISTORY: Long-term current use of antibiotic, CKD, obesity, pneumonia, status post central line placement.COMPARISON: Chest x-ray 09/08/20.FINDINGS:Examination is limited due to portable technique, patient body habitus and low lung volumes.Cardiac silhouette/Mediastinal contour: Persistent enlargement of cardiac silhouette. Atherosclerotic calcification of aortic arch.Lungs: No focal consolidation. No large pleural effusion. Pulmonary vascular congestion.Osseous Structures: Degenerative changes of thoracic spine.Additional Findings: Right-sided central line tip overlies right atrium..IMPRESSION: Right-sided central line tip overlies right atrium, okay to use.Electronically signed by: Dustin Vargas MD 09/09/2020 3:40 PM CDT [id number] GLUCOSE- LAB USE [id number] 12:04:00 Test Item Value Reference Range Interpretation Comments GLUCOMETER (test code = 229 mg/dL 70-100 H Mete r ID: GMG) [id number] tor: [address] [facility] COMPREHENSIVE METABOLIC [id number] 05:28:00 Test Item Value Reference Range Interpretation Comments GLUCOSE (test code 266 mg/dL 75-100 H = 06D) SODIUM (test code 137 mmol/L 136-145 = 01A) POTASSIUM (test 3.7 mmol/L 3.6-5.1 code = 01B) CHLORIDE (test 102 mmol/L 98-107 code = 04A) CO2 (test code = 26 mmol/L 22-32 02A) ANION GAP (test 12.7 mmol/L code = ANG) BUN (test code = 53 mg/dL 7-18 H 05D) CREATININE (test 2.8 mg/dL 0.4-1.1 H code = 03E) GFR (test code = 16 See_Comment L [Automated GFR) mL/min/1.73m\S\2 message] Th e system which generated this result transmit magen reference range : >=90. The reference range was not used to interpret this result as normal/abnormal . GFR 19 See_Comment L [Automated [place] (test mL/min/1.73m\S\2 message] The code = GFRAA) system which generated this result transmit magen reference range : >=90. The reference range was not used to interpret this result as normal/abnormal . EGFR (test code = eGFR BY EGFR) CKD-EPI CALCULATION IS NOT RECOMMENDED FOR PATIENTS UNDER 18 YEARS OF AGE. BUN/CREA (test 19 12-20 code = BCR) CALCIUM (test code 8.6 mg/dL 8.3-9.5 = 09D) BILI TOTAL (test 0.4 mg/dL 0.2-1.0 code = 11A) PROTEIN (test code 6.1 g/dL 6.4-8.2 L = 07D) ALBUMIN (test code 2.4 g/dL 3.5-4.8 L = 08D) GLOBULIN (test 3.7 g/dL 1.5-3.8 code = GLB) ALB/GLOB (test 0.6 1.0-2.6 L code = AGRR) ALK PHOS (test 45 IU/L 42-121 code = 35A) AST (test code = 16 IU/L See_Comment [Automated 30A) message] The system which generated this result transmit magen reference range : <=42. The reference range was not used to interpret this result as normal/abnormal . ALT (test code = 12 IU/L See_Comment [Automated 31A) message] The system which generated this result transmit magen reference range : <=78. The reference range was not used to interpret this result as normal/abnormal . GLUCOMETER GLUCOSE- LAB USE [id number] 05:22:00 Test Item Value Reference Range Interpretation Comments GLUCOMETER (test code = 297 mg/dL 70-100 H Mete r ID: GMG) [id number] tor: 19404 LENORA AGUILAR CBC (INCLUDES AUTOMATED DIFFERENTIAL)2020-09-09 04:47:00 Test Item Value Reference Range Interpretation Comments WBC (test code = WBC) 7.0 10\S\3/uL 4.5-11.0 RBC (test code = RBC) 2.91 10\S\6/uL 3.80-5.80 L HGB (test code = HBG) 8.7 g/dL 12.0-15.5 L HCT (test code = HCT) 26.3 % 35.0-44.0 L MCV (test code = MCV) 90.4 fL 81.0-99.0 MCH (test code = MCH) 29.9 pg 27.0-31.0 MCHC (test code = MCHC) 33.1 g/dL 32.0-36.0 RDW (test code = RDW) 13.1 % 11.5-14.5 PLT (test code = PLT) 160 10\S\3/uL 130-400 MPV (test code = MPV) 10.7 fL 9.4-12.4 NEUTROP # (test code = NE#) 4.6 10\S\3/uL 1.6-8.0 LYMPH # (test code = LY#) 1.1 10\S\3/uL 1.1-3.5 MONOCYTE # (test code = MO#) 0.5 10\S\3/uL 0.0-1.1 EOSINOPH # (test code = EO#) 0.7 10\S\3/uL 0.0-0.7 BASOPHIL # (test code = BA#) 0.1 10\S\3/uL 0.0-0.3 IG # (test code = IG#) 0.02 10\S\3/uL 0.00-0.06 NRBC # (test code = NRBC#) 0.00 10\S\3/uL 0.00-0.01 NEUTROPH % (test code = NE%) 65.8 % 35.0-73.0 LYMPH % (test code = LY%) 15.1 % 20.0-55.0 L MONO % (test code = MO%) 7.7 % 2.5-10.0 EOSINOPH % (test code = EO%) 10.4 % 0.0-5.0 H BASOPHIL % (test code = BA%) 0.7 % 0.0-2.0 IG % (test code = IG%) 0.3 % 0.0-0.8 NRBC% (test code = NRBC%) 0.0 % 0.0-0.2 MANDIFF (test code = MDIFF) NO RBC MORPH (test code = RBCMOR) NORMAL GLUCOMETER GLUCOSE- LAB USE [id number] 01:03:00 Test Item Value Reference Range Interpretation Comments GLUCOMETER (test code = 308 mg/dL 70-100 H Mete r ID: GMG) [id number] tor: [id number] LENORA R EYES GLUCOMETER GLUCOSE- LAB USE [id number] 19:57:00 Test Item Value Reference Range Interpretation Comments GLUCOMETER (test code = 367 mg/dL 70-100 H Mete r ID: GMG) [id number] tor: [id number] LENORA R EYES GLUCOMETER GLUCOSE- LAB USE [id number] 16:09:00 Test Item Value Reference Range Interpretation Comments GLUCOMETER (test code = 358 mg/dL 70-100 H Mete r ID: GMG) [id number] tor: [id number] HELEN RAJU XR CHEST 1 VIEW [id number] 14:22:48 [facility] : 1950 Sex: FPortable AP chest, 1 viewLocation Code: [id number] HISTORY: PneumoniaCOMPARISON: 09/04/2020OMMENT: Patient has been extubated and NG tube has been removed since prior exam. The heart size enlarged with central congestion and scattered patchy bilateral infiltrates appearing improved in the interval. Osseous structures are intact.IMPRESSION: Improved CHF and bilateral infiltrates status post extubation.Electronically signed by: Glenroy Mattson MD 09/08/2020 2:22 PM CDT [id number] 13:58:00 Test Item Value Reference Range Interpretation Comments Culture Observations (test NO GROWTH AFTER 5 code = COB1) DAYS GLUCOMETER GLUCOSE- LAB USE [id number] 11:49:00 Test Item Value Reference Range Interpretation Comments GLUCOMETER (test code = 246 mg/dL 70-100 H Mete r ID: GMG) [id number] tor: [id number] TERESA HARRISON VANCOMYCIN [id number] 07:53:00 Test Item Value Reference Range Interpretation Comments VANC RANDOM (test code = VANCR) 14.2 ug/dL 10.0-20.0 COMPREHENSIVE METABOLIC [id number] 06:16:00 Test Item Value Reference Range Interpretation Comments GLUCOSE (test code 271 mg/dL 75-100 H = 06D) SODIUM (test code 139 mmol/L 136-145 = 01A) POTASSIUM (test 3.9 mmol/L 3.6-5.1 code = 01B) CHLORIDE (test 102 mmol/L 98-107 code = 04A) CO2 (test code = 30 mmol/L 22-32 02A) ANION GAP (test 10.9 mmol/L code = ANG) BUN (test code = 52 mg/dL 7-18 H 05D) CREATININE (test 2.9 mg/dL 0.4-1.1 H code = 03E) GFR (test code = 15 See_Comment L [Automated GFR) mL/min/1.73m\S\2 message] Th e system which generated this result transmit magen reference range : >=90. The reference range was not used to interpret this result as normal/abnormal . GFR 18 See_Comment L [Automated [place] (test mL/min/1.73m\S\2 message] The code = GFRAA) system which generated this result transmit magen reference range : >=90. The reference range was not used to interpret this result as normal/abnormal . EGFR (test code = eGFR BY EGFR) CKD-EPI CALCULATION IS NOT RECOMMENDED FOR PATIENTS UNDER 18 YEARS OF AGE. BUN/CREA (test 18 12-20 code = BCR) CALCIUM (test code 9.0 mg/dL 8.3-9.5 = 09D) BILI TOTAL (test 0.6 mg/dL 0.2-1.0 code = 11A) PROTEIN (test code 6.8 g/dL 6.4-8.2 = 07D) ALBUMIN (test code 2.6 g/dL 3.5-4.8 L = 08D) GLOBULIN (test 4.2 g/dL 1.5-3.8 H code = GLB) ALB/GLOB (test 0.6 1.0-2.6 L code = AGRR) ALK PHOS (test 50 IU/L 42-121 code = 35A) AST (test code = 14 IU/L See_Comment [Automated 30A) message] The system which generated this result transmit magen reference range : <=42. The reference range was not used to interpret this result as normal/abnormal . ALT (test code = 14 IU/L See_Comment [Automated 31A) message] The system which generated this result transmit magen reference range : <=78. The reference range was not used to interpret this result as normal/abnormal . GLUCOMETER GLUCOSE- LAB USE [id number] 05:27:00 Test Item Value Reference Range Interpretation Comments GLUCOMETER (test code 312 mg/dL 70-100 H CLEANE D METERMeter ID: = GMG) [id number] tor: [id number] [place] GLUCOMETER GLUCOSE- LAB USE [id number] 00:02:00 Test Item Value Reference Range Interpretation Comments GLUCOMETER (test code 386 mg/dL 70-100 H CLEANE D METERMeter ID: = GMG) [id number] tor: 9493 [place] GLUCOMETER GLUCOSE- LAB USE [id number] 19:39:00 Test Item Value Reference Range Interpretation Comments GLUCOMETER (test code 431 mg/dL 70-100 H CLEANE D METERMeter ID: = GMG) [id number] tor: 9493 [place] GLUCOMETER GLUCOSE- LAB USE [id number] 16:38:00 Test Item Value Reference Range Interpretation Comments GLUCOMETER (test code = 133 mg/dL 70-100 H Mete r ID: GMG) [id number] tor: [id number] GLUCOMETER GLUCOSE- LAB USE [id number] 16:13:00 Test Item Value Reference Range Interpretation Comments GLUCOMETER (test code = 353 mg/dL 70-100 H Mete r ID: GMG) [id number] tor: [id number] GLUCOMETER GLUCOSE- LAB USE [id number] 11:47:00 Test Item Value Reference Range Interpretation Comments GLUCOMETER (test code = 274 mg/dL 70-100 H Mete r ID: GMG) [id number] tor: [address] GLUCOMETER GLUCOSE- LAB USE [id number] 05:22:00 Test Item Value Reference Range Interpretation Comments GLUCOMETER (test 271 mg/dL 70-100 H CLEANED MET ERDAILY code = GMG) MAINTENANCEMete r ID: [id number] tor: [id number] CARLY ARAUJO N COMPREHENSIVE METABOLIC [id number] 03:20:00 Test Item Value Reference Range Interpretation Comments GLUCOSE (test code 261 mg/dL 75-100 H = 06D) SODIUM (test code 139 mmol/L 136-145 = 01A) POTASSIUM (test 3.7 mmol/L 3.6-5.1 code = 01B) CHLORIDE (test 105 mmol/L 98-107 code = 04A) CO2 (test code = 29 mmol/L 22-32 02A) ANION GAP (test 8.7 mmol/L code = ANG) BUN (test code = 49 mg/dL 7-18 H 05D) CREATININE (test 2.7 mg/dL 0.4-1.1 H code = 03E) GFR (test code = 17 See_Comment L [Automated GFR) mL/min/1.73m\S\2 message] Th e system which generated this result transmit magen reference range : >=90. The reference range was not used to interpret this result as normal/abnormal . GFR 20 See_Comment L [Automated [place] (test mL/min/1.73m\S\2 message] The code = GFRAA) system which generated this result transmit magen reference range : >=90. The reference range was not used to interpret this result as normal/abnormal . EGFR (test code = eGFR BY EGFR) CKD-EPI CALCULATION IS NOT RECOMMENDED FOR PATIENTS UNDER 18 YEARS OF AGE. BUN/CREA (test 18 12-20 code = BCR) CALCIUM (test code 8.0 mg/dL 8.3-9.5 L = 09D) BILI TOTAL (test 0.5 mg/dL 0.2-1.0 code = 11A) PROTEIN (test code 6.4 g/dL 6.4-8.2 = 07D) ALBUMIN (test code 2.3 g/dL 3.5-4.8 L = 08D) GLOBULIN (test 4.1 g/dL 1.5-3.8 H code = GLB) ALB/GLOB (test 0.6 1.0-2.6 L code = AGRR) ALK PHOS (test 49 IU/L 42-121 code = 35A) AST (test code = 17 IU/L See_Comment [Automated 30A) message] The system which generated this result transmit magen reference range : <=42. The reference range was not used to interpret this result as normal/abnormal . ALT (test code = 13 IU/L See_Comment [Automated 31A) message] The system which generated this result transmit magen reference range : <=78. The reference range was not used to interpret this result as normal/abnormal . GLUCOMETER GLUCOSE- LAB USE [id number] 00:01:00 Test Item Value Reference Range Interpretation Comments GLUCOMETER (test 292 mg/dL 70-100 H CLEANED MET ERDAILY code = GMG) MAINTENANCEMete r ID: [id number] tor: [id number] CH[address]LE GAYLE N GLUCOMETER GLUCOSE- LAB USE [id number] 19:25:00 Test Item Value Reference Range Interpretation Comments GLUCOMETER (test code = 269 mg/dL 70-100 H Mete r ID: GMG) [id number] tor: [address] GLUCOMETER GLUCOSE- LAB USE [id number] 11:29:00 Test Item Value Reference Range Interpretation Comments GLUCOMETER (test code = 247 mg/dL 70-100 H Mete r ID: GMG) [id number] tor: [id number] YAIMA TO RRES VANCOMYCIN [id number] 10:36:00 Test Item Value Reference Range Interpretation Comments RADHA GORDILLO (test code = VANCT) 8.8 ug/dL 10.0-20.0 L GLUCOMETER GLUCOSE- LAB USE [id number] 05:49:00 Test Item Value Reference Range Interpretation Comments GLUCOMETER (test code = 166 mg/dL 70-100 H Mete r ID: GMG) [id number] tor: [id number] GOEY SI A COMPREHENSIVE METABOLIC [id number] 05:06:00 Test Item Value Reference Range Interpretation Comments GLUCOSE (test code 167 mg/dL 75-100 H = 06D) SODIUM (test code 147 mmol/L 136-145 H = 01A) POTASSIUM (test 3.2 mmol/L 3.6-5.1 L code = 01B) CHLORIDE (test 109 mmol/L 98-107 H code = 04A) CO2 (test code = 31 mmol/L 22-32 02A) ANION GAP (test 10.2 mmol/L code = ANG) BUN (test code = 48 mg/dL 7-18 H 05D) CREATININE (test 2.8 mg/dL 0.4-1.1 H code = 03E) GFR (test code = 16 See_Comment L [Automated GFR) mL/min/1.73m\S\2 message] Th e system which generated this result transmit magen reference range : >=90. The reference range was not used to interpret this result as normal/abnormal . GFR 19 See_Comment L [Automated [place] (test mL/min/1.73m\S\2 message] The code = GFRAA) system which generated this result transmit magen reference range : >=90. The reference range was not used to interpret this result as normal/abnormal . EGFR (test code = eGFR BY EGFR) CKD-EPI CALCULATION IS NOT RECOMMENDED FOR PATIENTS UNDER 18 YEARS OF AGE. BUN/CREA (test 17 12-20 code = BCR) CALCIUM (test code 9.0 mg/dL 8.3-9.5 = 09D) BILI TOTAL (test 0.7 mg/dL 0.2-1.0 code = 11A) PROTEIN (test code 6.7 g/dL 6.4-8.2 = 07D) ALBUMIN (test code 2.4 g/dL 3.5-4.8 L = 08D) GLOBULIN (test 4.3 g/dL 1.5-3.8 H code = GLB) ALB/GLOB (test 0.6 1.0-2.6 L code = AGRR) ALK PHOS (test 53 IU/L 42-121 code = 35A) AST (test code = 15 IU/L See_Comment [Automated 30A) message] The system which generated this result transmit magen reference range : <=42. The reference range was not used to interpret this result as normal/abnormal . ALT (test code = 12 IU/L See_Comment [Automated 31A) message] The system which generated this result transmit magen reference range : <=78. The reference range was not used to interpret this result as normal/abnormal . VANCOMYCIN [id number] 04:56:00 Test Item Value Reference Range Interpretation Comments VANC RANDOM (test code = VANCR) 9.4 ug/dL 10.0-20.0 L CBC (INCLUDES AUTOMATED DIFFERENTIAL)2020-09-06 04:40:00 Test Item Value Reference Range Interpretation Comments WBC (test code = WBC) 6.1 10\S\3/uL 4.5-11.0 RBC (test code = RBC) 3.11 10\S\6/uL 3.80-5.80 L HGB (test code = HBG) 9.5 g/dL 12.0-15.5 L HCT (test code = HCT) 29.0 % 35.0-44.0 L MCV (test code = MCV) 93.2 fL 81.0-99.0 MCH (test code = MCH) 30.5 pg 27.0-31.0 MCHC (test code = MCHC) 32.8 g/dL 32.0-36.0 RDW (test code = RDW) 13.7 % 11.5-14.5 PLT (test code = PLT) 170 10\S\3/uL 130-400 MPV (test code = MPV) 10.6 fL 9.4-12.4 NEUTROP # (test code = NE#) 3.7 10\S\3/uL 1.6-8.0 LYMPH # (test code = LY#) 1.0 10\S\3/uL 1.1-3.5 L MONOCYTE # (test code = MO#) 0.6 10\S\3/uL 0.0-1.1 EOSINOPH # (test code = EO#) 0.8 10\S\3/uL 0.0-0.7 H BASOPHIL # (test code = BA#) 0.0 10\S\3/uL 0.0-0.3 IG # (test code = IG#) 0.02 10\S\3/uL 0.00-0.06 NRBC # (test code = NRBC#) 0.00 10\S\3/uL 0.00-0.01 NEUTROPH % (test code = NE%) 60.3 % 35.0-73.0 LYMPH % (test code = LY%) 16.6 % 20.0-55.0 L MONO % (test code = MO%) 9.0 % 2.5-10.0 EOSINOPH % (test code = EO%) 13.3 % 0.0-5.0 H BASOPHIL % (test code = BA%) 0.5 % 0.0-2.0 IG % (test code = IG%) 0.3 % 0.0-0.8 NRBC% (test code = NRBC%) 0.0 % 0.0-0.2 MANDIFF (test code = MDIFF) NO RBC MORPH (test code = RBCMOR) NORMAL GLUCOMETER GLUCOSE- LAB USE [id number] 23:38:00 Test Item Value Reference Range Interpretation Comments GLUCOMETER (test code = 250 mg/dL 70-100 H Mete r ID: GMG) [id number] tor: 13093 GOFREY SI A GLUCOMETER GLUCOSE- LAB USE [id number] 18:01:00 Test Item Value Reference Range Interpretation Comments GLUCOMETER (test code = 255 mg/dL 70-100 H Mete r ID: GMG) [id number] tor: [id number] [facility] GLUCOMETER GLUCOSE- LAB USE [id number] 12:15:00 Test Item Value Reference Range Interpretation Comments GLUCOMETER (test code = 243 mg/dL 70-100 H Mete r ID: GMG) [id number] tor: [id number] [facility] URINE [id number] 08:44:00 Test Item Value Reference Range Interpretation Comments Isolate 1 (test code = Klebsiella pneumoniae A ISO1) ssp pneumoniae ampicillin (test code = ug/mL R am) piperacillin/tazobactam ug/mL S (test code = tzp) ceftazidime (test code = ug/mL S elissa) ceftriaxone1 (test code ug/mL S = ctr) cefepime (test code = ug/mL S fep) aztreonam (test code = ug/mL S azm) ertapenem (test code = ug/mL S etp) meropenem (test code = ug/mL S mem) gentamicin (test code = ug/mL S gm) tobramycin (test code = ug/mL S tob) levofloxacin (test code ug/mL S = lev) trimethoprim/sulfamethox ug/mL S azole (test code = sxt) PHOSPHORUS (P04)2020-09-05 08:41:00 Test Item Value Reference Range Interpretation Comments PHOSPHORUS (test code = 43D) 4.5 mg/dL 2.7-4.6 RESPIRATORY & GRAM STAIN [id number] 08:36:00 Test Item Value Reference Range Interpretation Comments Culture Observations NORMAL RESPIRATORY (test code = COB1) WANDA Direct Exam (test MODERATE WHITE code = DE1) BLOOD CELLS SEEN Direct Exam (test MANY GRAM POSITIVE A code = DE2) ALENA Direct Exam (test FEW EPITHELIAL code = DE3) CELLS SEEN Direct Exam (test MANY GRAM POSITIVE code = DE4) COCCI Direct Exam (test MANY GRAM NEGATIVE A code = DE5) COCCI Isolate 1 (test code Neisseria cinerea BE TA LACTAMASE = ISO1) NEGATIVE [id number] 08:33:00 Test Item Value Reference Range Interpretation Comments MAGNESIUM (test code = 48A) 2.1 mg/dL 1.8-2.4 COMPREHENSIVE METABOLIC [id number] 06:07:00 Test Item Value Reference Range Interpretation Comments GLUCOSE (test code 156 mg/dL 75-100 H = 06D) SODIUM (test code 144 mmol/L 136-145 = 01A) POTASSIUM (test 3.1 mmol/L 3.6-5.1 L code = 01B) CHLORIDE (test 107 mmol/L 98-107 code = 04A) CO2 (test code = 31 mmol/L 22-32 02A) ANION GAP (test 9.1 mmol/L code = ANG) BUN (test code = 48 mg/dL 7-18 H 05D) CREATININE (test 2.9 mg/dL 0.4-1.1 H code = 03E) GFR (test code = 15 See_Comment L [Automated GFR) mL/min/1.73m\S\2 message] Th e system which generated this result transmit magen reference range : >=90. The reference range was not used to interpret this result as normal/abnormal . GFR 18 See_Comment L [Automated [place] (test mL/min/1.73m\S\2 message] The code = GFRAA) system which generated this result transmit magen reference range : >=90. The reference range was not used to interpret this result as normal/abnormal . EGFR (test code = eGFR BY EGFR) CKD-EPI CALCULATION IS NOT RECOMMENDED FOR PATIENTS UNDER 18 YEARS OF AGE. BUN/CREA (test 17 -20 code = BCR) CALCIUM (test code 8.7 mg/dL 8.3-9.5 = 09D) BILI TOTAL (test 0.5 mg/dL 0.2-1.0 code = 11A) PROTEIN (test code 6.3 g/dL 6.4-8.2 L = 07D) ALBUMIN (test code 2.3 g/dL 3.5-4.8 L = 08D) GLOBULIN (test 4.0 g/dL 1.5-3.8 H code = GLB) ALB/GLOB (test 0.6 1.0-2.6 L code = AGRR) ALK PHOS (test 52 IU/L 42-121 code = 35A) AST (test code = 10 IU/L See_Comment [Automated 30A) message] The system which generated this result transmit magen reference range : <=42. The reference range was not used to interpret this result as normal/abnormal . ALT (test code = 13 IU/L See_Comment [Automated 31A) message] The system which generated this result transmit magen reference range : <=78. The reference range was not used to interpret this result as normal/abnormal . CBC (INCLUDES AUTOMATED DIFFERENTIAL)2020-09-05 05:50:00 Test Item Value Reference Range Interpretation Comments WBC (test code = WBC) 7.0 10\S\3/uL 4.5-11.0 RBC (test code = RBC) 3.00 10\S\6/uL 3.80-5.80 L HGB (test code = HBG) 9.0 g/dL 12.0-15.5 L HCT (test code = HCT) 27.8 % 35.0-44.0 L MCV (test code = MCV) 92.7 fL 81.0-99.0 MCH (test code = MCH) 30.0 pg 27.0-31.0 MCHC (test code = MCHC) 32.4 g/dL 32.0-36.0 RDW (test code = RDW) 14.3 % 11.5-14.5 PLT (test code = PLT) 151 10\S\3/uL 130-400 MPV (test code = MPV) 10.8 fL 9.4-12.4 NEUTROP # (test code = NE#) 4.7 10\S\3/uL 1.6-8.0 LYMPH # (test code = LY#) 1.0 10\S\3/uL 1.1-3.5 L MONOCYTE # (test code = MO#) 0.5 10\S\3/uL 0.0-1.1 EOSINOPH # (test code = EO#) 0.6 10\S\3/uL 0.0-0.7 BASOPHIL # (test code = BA#) 0.0 10\S\3/uL 0.0-0.3 IG # (test code = IG#) 0.02 10\S\3/uL 0.00-0.06 NRBC # (test code = NRBC#) 0.00 10\S\3/uL 0.00-0.01 NEUTROPH % (test code = NE%) 67.9 % 35.0-73.0 LYMPH % (test code = LY%) 14.2 % 20.0-55.0 L MONO % (test code = MO%) 7.8 % 2.5-10.0 EOSINOPH % (test code = EO%) 9.2 % 0.0-5.0 H BASOPHIL % (test code = BA%) 0.6 % 0.0-2.0 IG % (test code = IG%) 0.3 % 0.0-0.8 NRBC% (test code = NRBC%) 0.0 % 0.0-0.2 MANDIFF (test code = MDIFF) NO RBC MORPH (test code = RBCMOR) NORMAL GLUCOMETER GLUCOSE- LAB USE [id number] 05:47:00 Test Item Value Reference Range Interpretation Comments GLUCOMETER (test code = 154 mg/dL 70-100 H Mete r ID: GMG) [id number] tor: 4723 [facility] [id number] 04:29:00 Test Item Value Reference Range Interpretation Comments pH (test code = PHRT) 7.442 7.350-7.450 pCO2 (test code = 44.4 mmHg 35.0-45.0 PCO2RT) pO2 (test code = 138.0 mmHg 80.0-110.0 H PO2RT) HCO3? (test code = 29.8 mmol/L 22.0-26.0 H HCO3) ARIA (test code = ARIA) 5.3 mmol/L -3.0-3.0 H tHb (test code = 12.9 g/dL 12.0-15.5 THBRT) sO2 (test code = 98.7 % 92.0-100.0 SO2RT) FO2Hb (test code = 96.7 % 94.0-100.0 SA6LLEH) FCOHb (test code = 0.9 % 0.0-3.0 FCOHBRT) FMetHb (test code = 1.1 % 0.2-0.6 H FMETHBRT) ABGTEMP (test code = * Temp Corrected Values* ABGTEMP) ABGTEMP (test code = 37.0 ?C ABGTEMP.) pH (T) (test code = 7.442 7.350-7.450 PHTEMP) pCO2 (T) (test code = 44.4 mmHg 35.0-45.0 UGP4WOMG) pO2 (T) (test code = 138.0 mmHg 80.0-110.0 H LF3JFFG) Device (test code = VENTILATOR DEVICE) FI02 (test code = 50.0 % FI02) Liter_flow (test code = LF) VENPAR (test code = * Ventilator Parameters VENPAR) * SIMV (test code = 7 SIMV) A/C (test code = A/C) APRV (test code = APRV) Press Control (test code = PC) CPAP (test code = CPAP) PEEP (test code = 5.0 PEEP) PS (test code = PS) 12 PIP (test code = PIP) I_Time (test code = ITIME) I : E Ratio (test code = IERATIO) Vt (test code = VT) 650 BIPAP INSP (test code = BIPAPINP) BIPAP EXP (test code = BIPAPEXP) Gennaro test (test code Positive = ATEST) SAMPLE SITE (test Artery, Right Radial code = SSITE) COMMENT (test code = CO) GLUCOMETER GLUCOSE- LAB USE [id number] 00:30:00 Test Item Value Reference Range Interpretation Comments GLUCOMETER (test 223 mg/dL 70-100 H CLEANED MET ERDAILY code = GMG) MAINTENANCEMete r ID: [id number] tor: 4723 SAIDAT NAWVYANJ A GLUCOMETER GLUCOSE- LAB USE [id number] 16:55:00 Test Item Value Reference Range Interpretation Comments GLUCOMETER (test code 138 mg/dL 70-100 H CLEANE D METERMeter ID: = GMG) [id number] tor: 9171 NICK MONIKA GLUCOMETER GLUCOSE- LAB USE [id number] 11:10:00 Test Item Value Reference Range Interpretation Comments GLUCOMETER (test code 155 mg/dL 70-100 H CLEANE D METERMeter ID: = GMG) [id number] tor: 9171 NICK MONIKA IRON/TIBC/IRON [id number] 09:51:00 Test Item Value Reference Range Interpretation Comments IRON (test code = 46B) 13 ug/dL 50-170 L TIBC (test code = 79B) 246 ug/dL 250-400 L FE% SAT (test code = ISAT) 5.3 % 15.0-50.0 L XR CHEST 1 VIEW [id number] 08:14:52 [facility] : 1950 Sex: FCHEST, SINGLE VIEWDICTATION LOCATION [id number]: Fever.A single view of the chest at 5:19 AM was compared to a prior exam from September 03, 2020.FINDINGS: Bilateral pulmonary infiltrates are stable along with cardiomegaly and central pulmonary vascular congestion. Lines and tubes are unchanged. No new findings are seen.IMPRESSION: No change from the prior exam.Electronically signed by: Rolando Owens MD 09/04/2020 8:14 AM CDT WITH MANUAL [id number] 07:22:00 Test Item Value Reference Range Interpretation Comments WBC (test code = 7.5 10\S\3/uL 4.5-11.0 WBC) RBC (test code = 2.97 10\S\6/uL 3.80-5.80 L RBC) HGB (test code = 9.2 g/dL 12.0-15.5 L HBG) HCT (test code = 27.5 % 35.0-44.0 L HCT) MCV (test code = 92.6 fL 81.0-99.0 MCV) MCH (test code = 31.0 pg 27.0-31.0 MCH) MCHC (test code = 33.5 g/dL 32.0-36.0 MCHC) RDW (test code = 14.8 % 11.5-14.5 H RDW) PLT (test code = 156 10\S\3/uL 130-400 PLT) MPV (test code = 11.2 fL 9.4-12.4 MPV) NEUTROP # (test 5.4 10\S\3/uL 1.6-8.0 code = NE#) LYMPH # (test 1.0 10\S\3/uL 1.1-3.5 L code = LY#) MONOCYTE # (test 0.5 10\S\3/uL 0.0-1.1 code = MO#) EOSINOPH # (test 0.5 10\S\3/uL 0.0-0.7 code = EO#) BASOPHIL # (test 0.1 10\S\3/uL 0.0-0.3 code = BA#) IG # (test code = 0.02 10\S\3/uL 0.00-0.06 IG#) NRBC # (test code 0.00 10\S\3/uL 0.00-0.01 = NRBC#) NEUTROPH % (test 71.9 % 35.0-73.0 code = NE%) LYMPH % (test 13.9 % 20.0-55.0 L code = LY%) MONO % (test code 6.6 % 2.5-10.0 = MO%) EOSINOPH % (test 6.6 % 0.0-5.0 H code = EO%) BASOPHIL % (test 0.7 % 0.0-2.0 code = BA%) IG % (test code = 0.3 % 0.0-0.8 IG%) NRBC% (test code 0.0 % 0.0-0.2 = NRBC%) MAN DIFF (test MANUAL code = HMDIFF) DIFFERENTIAL SEG (test code = 75 % 42-75 SEG) BAND (test code = 0 % 0-8 BAND) LYMPH (test code 8 % 20-51 L = LYMPH) MONO (test code = 2 % 3-11 L MONO) EOS (test code = 12 % 0-10 H EOS) BASO (test code = 0 % 0-2 BASO) META (test code = 3 % See_Comment H [Automate d message] META) The system [employer] generated this result transmit magen reference range : <=1. The refere nce range was not u sed to interpret th is result as normal/abnormal . RBC MORPH (test NORMAL NORMAL code = RBCMORN) PLT EST (test ADEQUATE ADEQUATE code = PLTEST) PLT MORPH (test NORMAL (1.5-3 um) NORMAL code = PLTMOR) COMPREHENSIVE METABOLIC [id number] 06:25:00 Test Item Value Reference Range Interpretation Comments GLUCOSE (test code 129 mg/dL 75-100 H = 06D) SODIUM (test code 145 mmol/L 136-145 = 01A) POTASSIUM (test 3.5 mmol/L 3.6-5.1 L code = 01B) CHLORIDE (test 108 mmol/L 98-107 H code = 04A) CO2 (test code = 29 mmol/L 22-32 02A) ANION GAP (test 11.5 mmol/L code = ANG) BUN (test code = 51 mg/dL 7-18 H 05D) CREATININE (test 3.0 mg/dL 0.4-1.1 H code = 03E) GFR (test code = 15 See_Comment L [Automated GFR) mL/min/1.73m\S\2 message] Th e system which generated this result transmit magen reference range : >=90. The reference range was not used to interpret this result as normal/abnormal . GFR 17 See_Comment L [Automated [place] (test mL/min/1.73m\S\2 message] The code = GFRAA) system which generated this result transmit magen reference range : >=90. The reference range was not used to interpret this result as normal/abnormal . EGFR (test code = eGFR BY EGFR) CKD-EPI CALCULATION IS NOT RECOMMENDED FOR PATIENTS UNDER 18 YEARS OF AGE. BUN/CREA (test 17 12-20 code = BCR) CALCIUM (test code 8.7 mg/dL 8.3-9.5 = 09D) BILI TOTAL (test 0.5 mg/dL 0.2-1.0 code = 11A) PROTEIN (test code 6.6 g/dL 6.4-8.2 = 07D) ALBUMIN (test code 2.7 g/dL 3.5-4.8 L = 08D) GLOBULIN (test 3.9 g/dL 1.5-3.8 H code = GLB) ALB/GLOB (test 0.7 1.0-2.6 L code = AGRR) ALK PHOS (test 54 IU/L 42-121 code = 35A) AST (test code = 14 IU/L See_Comment [Automated 30A) message] The system which generated this result transmit magen reference range : <=42. The reference range was not used to interpret this result as normal/abnormal . ALT (test code = 15 IU/L See_Comment [Automated 31A) message] The system which generated this result transmit magen reference range : <=78. The reference range was not used to interpret this result as normal/abnormal . GLUCOMETER GLUCOSE- LAB USE [id number] 06:06:00 Test Item Value Reference Range Interpretation Comments GLUCOMETER (test code = 136 mg/dL 70-100 H Mete r ID: [id number]) [id number] tor: [id number] [facility] Arterial Blood [id number] 04:29:00 Test Item Value Reference Range Interpretation Comments pH (test code = PHRT) 7.425 7.350-7.450 pCO2 (test code = 41.6 mmHg 35.0-45.0 PCO2RT) pO2 (test code = 113.0 mmHg 80.0-110.0 H PO2RT) HCO3? (test code = 26.8 mmol/L 22.0-26.0 H HCO3) ARIA (test code = ARIA) 2.7 mmol/L -3.0-3.0 tHb (test code = 10.6 g/dL 12.0-15.5 L THBRT) sO2 (test code = 96.8 % 92.0-100.0 SO2RT) FO2Hb (test code = 95.9 % 94.0-100.0 [id number]) FCOHb (test code = 0.2 % 0.0-3.0 FCOHBRT) FMetHb (test code = 0.7 % 0.2-0.6 H FMETHBRT) ABGTEMP (test code = * Temp Corrected Values* ABGTEMP) ABGTEMP (test code = 37.0 ?C ABGTEMP.) pH (T) (test code = 7.425 7.350-7.450 PHTEMP) pCO2 (T) (test code = 41.6 mmHg 35.0-45.0 [id number]) pO2 (T) (test code = 113.0 mmHg 80.0-110.0 H [id number]) Device (test code = VENTILATOR DEVICE) FI02 (test code = 60.0 % FI02) Liter_flow (test code = LF) VENPAR (test code = * Ventilator Parameters VENPAR) * SIMV (test code = 12 SIMV) A/C (test code = A/C) APRV (test code = APRV) Press Control (test code = PC) CPAP (test code = CPAP) PEEP (test code = 5.0 PEEP) PS (test code = PS) 12 PIP (test code = PIP) I_Time (test code = ITIME) I : E Ratio (test code = IERATIO) Vt (test code = VT) 600 BIPAP INSP (test code = BIPAPINP) BIPAP EXP (test code = BIPAPEXP) Gennaro test (test code Positive = ATEST) SAMPLE SITE (test Artery, Right Radial code = SSITE) COMMENT (test code = CO) GLUCOMETER GLUCOSE- LAB USE [id number] 00:42:00 Test Item Value Reference Range Interpretation Comments GLUCOMETER (test 90 mg/dL 70-100 DAILY MAINT ENANCEMeter code = GMG) ID: [id number] perator: [id number] [address] NA[address] VERIKJA GLUCOMETER GLUCOSE- LAB USE [id number] 17:36:00 Test Item Value Reference Range Interpretation Comments GLUCOMETER (test code = 187 mg/dL 70-100 H Mete r ID: GMG) [id number] tor: [id number] BAY[address] VILLATORO OSEUX GLUCOMETER GLUCOSE- LAB USE [id number] 11:10:00 Test Item Value Reference Range Interpretation Comments GLUCOMETER (test code 219 mg/dL 70-100 H CLEANE D METERMeter ID: = GMG) [id number] tor: [id number] [address] A T4 [id number] 10:36:00 Test Item Value Reference Range Interpretation Comments T4 FREE (test code = A91) 1.04 ng/dL 0.76-1.46 THYROID PANEL/SCREEN (TSH)2020-09-03 10:36:00 Test Item Value Reference Range Interpretation Comments TSH (test code = A57) 1.540 uIU/mL 0.358-3.740 CARDIAC [id number] 10:26:00 Test Item Value Reference Range Interpretation Comments TROPONIN I (test code = A84) 0.529 ng/mL 0.000-0.045 HH XR CHEST 1 [id number] 08:20:06 [facility] : 1950 Sex: FChest RadiographHistory: Respiratory failureComparison: None at this timeLocation: R16A single frontal view of the chest is submitted. The heart is within normal limits in size. There is pulmonary vascular congestion. There are patchy opacities in the lungs bilaterally.The bones appear unremarkable.Anasogastric tube terminates in the stomach.An endotracheal tube terminates approximately 1 cm above the kameron.IMPRESSION:An endotracheal tube terminates approximately 1 cm above the kameron. This may want to be withdrawn 1 cm for more optimal positioning.There are patchy opacities in the lungs bilaterally. This could be due to pulmonary edema or pneumonia. Much of this finding could be artifactual in nature secondary to the patient's superimposed hands. A follow-up repeat frontal radiograph is recommended.There is pulmonary vascular congestion. Electronically signed by: Deni Ibrahim MD 18:20 AM CDT WITH MANUAL [id number] 08:20:00 Test Item Value Reference Range Interpretation Comments WBC (test code = WBC) 5.8 10\S\3/uL 4.5-11.0 RBC (test code = RBC) 2.75 10\S\6/uL 3.80-5.80 L HGB (test code = HBG) 8.4 g/dL 12.0-15.5 L HCT (test code = HCT) 25.0 % 35.0-44.0 L MCV (test code = MCV) 90.9 fL 81.0-99.0 MCH (test code = MCH) 30.5 pg 27.0-31.0 MCHC (test code = MCHC) 33.6 g/dL 32.0-36.0 RDW (test code = RDW) 14.2 % 11.5-14.5 PLT (test code = PLT) 160 10\S\3/uL 130-400 MPV (test code = MPV) 10.7 fL 9.4-12.4 NEUTROP # (test code = 4.8 10\S\3/uL 1.6-8.0 NE#) LYMPH # (test code = 0.6 10\S\3/uL 1.1-3.5 L LY#) MONOCYTE # (test code = 0.3 10\S\3/uL 0.0-1.1 MO#) EOSINOPH # (test code = 0.1 10\S\3/uL 0.0-0.7 EO#) BASOPHIL # (test code = 0.0 10\S\3/uL 0.0-0.3 BA#) IG # (test code = IG#) 0.02 10\S\3/uL 0.00-0.06 NRBC # (test code = 0.00 10\S\3/uL 0.00-0.01 NRBC#) NEUTROPH % (test code = 83.1 % 35.0-73.0 H NE%) LYMPH % (test code = 9.9 % 20.0-55.0 L LY%) MONO % (test code = 4.3 % 2.5-10.0 MO%) EOSINOPH % (test code = 1.9 % 0.0-5.0 EO%) BASOPHIL % (test code = 0.5 % 0.0-2.0 BA%) IG % (test code = IG%) 0.3 % 0.0-0.8 NRBC% (test code = 0.0 % 0.0-0.2 NRBC%) MAN DIFF (test code = MANUAL HMDIFF) DIFFERENTIAL SEG (test code = SEG) 81 % 42-75 H BAND (test code = BAND) 0 % 0-8 LYMPH (test code = 12 % 20-51 L LYMPH) MONO (test code = MONO) 4 % 3-11 EOS (test code = EOS) 3 % 0-10 BASO (test code = BASO) 0 % 0-2 RBC MORPH (test code = NORMAL NORMAL RBCMORN) PLT EST (test code = ADEQUATE ADEQUATE PLTEST) PLT MORPH (test code = NORMAL (1.5-3 um) NORMAL PLTMOR) Arterial Blood [id number] 04:49:00 Test Item Value Reference Range Interpretation Comments pH (test code = PHRT) 7.420 7.350-7.450 pCO2 (test code = 37.9 mmHg 35.0-45.0 PCO2RT) pO2 (test code = 100.0 mmHg 80.0-110.0 PO2RT) HCO3? (test code = 24.1 mmol/L 22.0-26.0 HCO3) ARIA (test code = ARIA) 0.2 mmol/L -3.0-3.0 tHb (test code = 8.6 g/dL 12.0-15.5 L THBRT) sO2 (test code = 97.5 % 92.0-100.0 SO2RT) FO2Hb (test code = 95.2 % 94.0-100.0 [id number]) FCOHb (test code = 1.2 % 0.0-3.0 FCOHBRT) FMetHb (test code = 1.2 % 0.2-0.6 H FMETHBRT) ABGTEMP (test code = * Temp Corrected Values* ABGTEMP) ABGTEMP (test code = 37.0 ?C ABGTEMP.) pH (T) (test code = 7.420 7.350-7.450 PHTEMP) pCO2 (T) (test code = 37.9 mmHg 35.0-45.0 ZGX1EOWH) pO2 (T) (test code = 100.0 mmHg 80.0-110.0 ZI4ALZD) Device (test code = VENTILATOR DEVICE) FI02 (test code = 60.0 % FI02) Liter_flow (test code = LF) VENPAR (test code = * Ventilator Parameters VENPAR) * SIMV (test code = SIMV) A/C (test code = A/C) 16 APRV (test code = APRV) Press Control (test code = PC) CPAP (test code = CPAP) PEEP (test code = 5.0 PEEP) PS (test code = PS) PIP (test code = PIP) I_Time (test code = ITIME) I : E Ratio (test code = IERATIO) Vt (test code = VT) 500 BIPAP INSP (test code = BIPAPINP) BIPAP EXP (test code = BIPAPEXP) Gennaro test (test code Positive = ATEST) SAMPLE SITE (test Artery, Left Radial code = SSITE) COMMENT (test code = CO) COMPREHENSIVE METABOLIC [id number] 04:07:00 Test Item Value Reference Range Interpretation Comments GLUCOSE (test code 268 mg/dL 75-100 H = 06D) SODIUM (test code 137 mmol/L 136-145 = 01A) POTASSIUM (test 3.8 mmol/L 3.6-5.1 code = 01B) CHLORIDE (test 105 mmol/L 98-107 code = 04A) CO2 (test code = 25 mmol/L 22-32 02A) ANION GAP (test 10.8 mmol/L code = ANG) BUN (test code = 57 mg/dL 7-18 H 05D) CREATININE (test 3.4 mg/dL 0.4-1.1 H code = 03E) GFR (test code = 13 See_Comment L [Automated GFR) mL/min/1.73m\S\2 message] Th e system which generated this result transmit magen reference range : >=90. The reference range was not used to interpret this result as normal/abnormal . GFR 15 See_Comment L [Automated [place] (test mL/min/1.73m\S\2 message] The code = GFRAA) system which generated this result transmit magen reference range : >=90. The reference range was not used to interpret this result as normal/abnormal . EGFR (test code = eGFR BY EGFR) CKD-EPI CALCULATION IS NOT RECOMMENDED FOR PATIENTS UNDER 18 YEARS OF AGE. BUN/CREA (test 17 12-20 code = BCR) CALCIUM (test code 8.0 mg/dL 8.3-9.5 L = 09D) BILI TOTAL (test 0.5 mg/dL 0.2-1.0 code = 11A) PROTEIN (test code 6.5 g/dL 6.4-8.2 = 07D) ALBUMIN (test code 2.9 g/dL 3.5-4.8 L = 08D) GLOBULIN (test 3.6 g/dL 1.5-3.8 code = GLB) ALB/GLOB (test 0.8 1.0-2.6 L code = AGRR) ALK PHOS (test 54 IU/L 42-121 code = 35A) AST (test code = 20 IU/L See_Comment [Automated 30A) message] The system which generated this result transmit magen reference range : <=42. The reference range was not used to interpret this result as normal/abnormal . ALT (test code = 18 IU/L See_Comment [Automated 31A) message] The system which generated this result transmit magen reference range : <=78. The reference range was not used to interpret this result as normal/abnormal . cardiovascular assessment panel, [id number] 00:00:00 Test Item Value Reference Range Interpretation Comments Interpretation and review of note laboratory results (test code = 78535-5) Report (test code = 62627-4) not applicable [facility] CKD [id number] 00:00:00 Test Item Value Reference Range Interpretation Comments Report (test code = 86838-2) note Interpretation and review of laboratory . results (test code = 72525-3) [facility] [id number] 00:00:00 Test Item Value Reference Range Interpretation Comments pdf (test code = pdf) not applicable [facility] HospitalHemoglobin A1c/Hemoglobin.total in [id number] 00:00:00 Test Item Value Reference Range Interpretation Comments Hemoglobin A1c/Hemoglobin.total in 5.6 % 4.8-5.6 Blood (test code = 4548-4) [facility]Com[facility] 2000 panel - Serum or [id number] 00:00:00 Test Item Value Reference Range Interpretation Comments Glucose [Mass/volume] in Serum 92 mg/dL 65-99 or Plasma (test code = 2345-7) Urea nitrogen [Mass/volume] in 65 mg/dL 8-27 H Serum or Plasma (test code = 3094-0) Creatinine [Mass/volume] in 3.11 mg/dL 0.57-1.00 H Serum or Plasma (test code = 2160-0) Glomerular filtration 14 mL/min/1.73 >59 L rate/1.73 sq M.predicted among non-blacks [Volume Rate/Area] in Serum, Plasma or Blood by Creatinine-based formula (CKD-EPI) (test code = 04056-8) Glomerular filtration 17 mL/min/1.73 >59 L rate/1.73 sq M.predicted among blacks [Volume Rate/Area] in Serum, Plasma or Blood by Creatinine-based formula (CKD-EPI) (test code = 79503-8) Urea nitrogen/Creatinine [Mass 21 12-28 Ratio] in Serum or Plasma (test code = 3097-3) Sodium [Moles/volume] in Serum 141 mmol/L 134-144 or Plasma (test code = 2951-2) Potassium [Moles/volume] in 4.5 mmol/L 3.5-5.2 Serum or Plasma (test code = 2823-3) Chloride [Moles/volume] in 102 mmol/L 96-106 Serum or Plasma (test code = 2075-0) Carbon dioxide, total 25 mmol/L 20-29 [Moles/volume] in Serum or Plasma (test code = 2027-9) Calcium [Mass/volume] in Serum 8.9 mg/dL 8.7-10.3 or Plasma (test code = 99026-3) Protein [Mass/volume] in Serum 6.4 g/dL 6.0-8.5 or Plasma (test code = 2885-2) Albumin [Mass/volume] in Serum 3.7 g/dL 3.7-4.7 or Plasma (test code = 1751-7) Globulin [Mass/volume] in 2.7 g/dL 1.5-4.5 Serum by calculation (test code = 91201-4) Albumin/Globulin [Mass Ratio] 1.4 1.2-2.2 in Serum or Plasma (test code = 1759-0) Bilirubin.total [Mass/volume] 0.4 mg/dL 0.0-1.2 in Serum or Plasma (test code = 1975-2) Alkaline phosphatase 55 IU/L 39-117 [Enzymatic activity/volume] in Serum or Plasma (test code = 6768-6) Aspartate aminotransferase 17 IU/L 0-40 [Enzymatic activity/volume] in Serum or Plasma (test code = 1920-8) Alanine aminotransferase 13 IU/L 0-32 [Enzymatic activity/volume] in Serum or Plasma (test code = 1742-6) [facility] and TSH panel - Serum or [id number] 00:00:00 Test Item Value Reference Range Interpretation Comments Thyrotropin [Units/volume] in 2.920 uIU/mL 0.450-4.500 Serum or Plasma by Detection limit <= 0.005 mIU/L (test code = 59141-2) Thyroxine (T4) free 1.33 NG/dL 0.82-1.77 [Mass/volume] in Serum or Plasma (test code = 3024-7) [facility] HospitalCBC W Auto Differential panel - Blood 2020-07-01 00:00:00 Test Item Value Reference Range Interpretation Comments Leukocytes [#/volume] in Blood 6.1 x10e3/uL 3.4-10.8 by Automated count (test code = 6690-2) Erythrocytes [#/volume] in 3.12 x10e6/uL 3.77-5.28 L Blood by Automated count (test code = 789-8) Hemoglobin [Mass/volume] in 9.5 g/dL 11.1-15.9 L Blood (test code = 718-7) Hematocrit [Volume Fraction] of 29.0 % 34.0-46.6 L Blood by Automated count (test code = 4544-3) MCV [Entitic volume] by 93 fL 79-97 Automated count (test code = 787-2) MCH [Entitic mass] by Automated 30.4 pg 26.6-33.0 count (test code = 785-6) MCHC [Mass/volume] by Automated 32.8 g/dL 31.5-35.7 count (test code = 786-4) Erythrocyte distribution width 14.1 % 11.7-15.4 [Ratio] by Automated count (test code = 788-0) Platelets [#/volume] in Blood 197 x10e3/uL 150-450 by Automated count (test code = 777-3) Neutrophils/100 leukocytes in 57 % not estab. Blood by Automated count (test code = 770-8) Lymphocytes/100 leukocytes in 19 % not estab. Blood by Automated count (test code = 736-9) Monocytes/100 leukocytes in 7 % not estab. Blood by Automated count (test code = 5905-5) Eosinophils/100 leukocytes in 16 % not estab. Blood by Automated count (test code = 713-8) Basophils/100 leukocytes in 1 % not estab. Blood by Automated count (test code = 706-2) immature cells (test code = supervisor statement clerks immature cells) Neutrophils [#/volume] in Blood 3.5 x10e3/uL 1.4-7.0 by Automated count (test code = 751-8) Lymphocytes [#/volume] in Blood 1.1 x10e3/uL 0.7-3.1 by Automated count (test code = 731-0) Monocytes [#/volume] in Blood 0.4 x10e3/uL 0.1-0.9 by Automated count (test code = 742-7) Eosinophils [#/volume] in Blood 1.0 x10e3/uL 0.0-0.4 H by Automated count (test code = 711-2) Basophils [#/volume] in Blood 0.1 x10e3/uL 0.0-0.2 by Automated count (test code = 704-7) Immature granulocytes/100 0 % not estab. leukocytes in Blood by Automated count (test code = 42978-1) Immature granulocytes 0.0 x10e3/uL 0.0-0.1 [#/volume] in Blood by Automated count (test code = 28269-6) Nucleated erythrocytes/100 supervisor statement clerks leukocytes [Ratio] in Blood by Automated count (test code = 61372-3) Morphology [Interpretation] in supervisor statement clerks Blood Narrative (test code = 52553-9) [facility] Hospital[facility]id 1996 panel - Serum or Plasma 2020-07-01 00:00:00 Test Item Value Reference Range Interpretation Comments Cholesterol [Mass/volume] in Serum 136 mg/dL 100-199 or Plasma (test code = 2093-3) Triglyceride [Mass/volume] in Serum 114 mg/dL 0-149 or Plasma (test code = 2571-8) Cholesterol in HDL [Mass/volume] in 51 mg/dL >39 Serum or Plasma (test code = 2085-9) Cholesterol in VLDL [Mass/volume] 21 mg/dL 5-40 in Serum or Plasma by calculation (test code = 33807-9) Cholesterol in LDL [Mass/volume] in 64 mg/dL 0-99 Serum or Plasma by calculation (test code = 34552-0) Laboratory comment [Text] in Report supervisor statement clerks Narrative (test code = 61172-9) [facility] Ratio] in [id number] 00:00:00 Test Item Value Reference Range Interpretation Comments Creatinine [Mass/volume] in 40.6 mg/dL not estab. Urine (test code = 2161-8) Microalbumin [Mass/volume] in 1478.8 ug/mL not estab. Urine (test code = 17890-1) Albumin/Creatinine [Mass 3642 mg/g creat 0-29 H ratio] in Urine (test code = 9318-7) [facility]Com[facility] 2000 panel - Serum or [id number] 00:00:00 Test Item Value Reference Range Interpretation Comments Glucose [Mass/volume] in Serum 151 mg/dL 65-99 H or Plasma (test code = 2345-7) Urea nitrogen [Mass/volume] in 66 mg/dL 8-27 H Serum or Plasma (test code = 3094-0) Creatinine [Mass/volume] in 3.02 mg/dL 0.57-1.00 H Serum or Plasma (test code = 2160-0) Glomerular filtration 15 mL/min/1.73 >59 L rate/1.73 sq M.predicted among non-blacks [Volume Rate/Area] in Serum, Plasma or Blood by Creatinine-based formula (CKD-EPI) (test code = 76592-0) Glomerular filtration 17 mL/min/1.73 >59 L rate/1.73 sq M.predicted among blacks [Volume Rate/Area] in Serum, Plasma or Blood by Creatinine-based formula (CKD-EPI) (test code = 30576-7) Urea nitrogen/Creatinine [Mass 22 12-28 Ratio] in Serum or Plasma (test code = 3097-3) Sodium [Moles/volume] in Serum 144 mmol/L 134-144 or Plasma (test code = 2951-2) Potassium [Moles/volume] in 5.1 mmol/L 3.5-5.2 Serum or Plasma (test code = 2823-3) Chloride [Moles/volume] in 106 mmol/L 96-106 Serum or Plasma (test code = 2074-0) Carbon dioxide, total 24 mmol/L 20-29 [Moles/volume] in Serum or Plasma (test code = 2027-9) Calcium [Mass/volume] in Serum 10.0 mg/dL 8.7-10.3 or Plasma (test code = 80423-2) Protein [Mass/volume] in Serum 6.7 g/dL 6.0-8.5 or Plasma (test code = 2885-2) Albumin [Mass/volume] in Serum 4.0 g/dL 3.7-4.7 or Plasma (test code = 175-7) Globulin [Mass/volume] in 2.7 g/dL 1.5-4.5 Serum by calculation (test code = 82271-7) Albumin/Globulin [Mass Ratio] 1.5 1.2-2.2 in Serum or Plasma (test code = 1759-0) Bilirubin.total [Mass/volume] 0.3 mg/dL 0.0-1.2 in Serum or Plasma (test code = 1974-) Alkaline phosphatase 59 IU/L 39-117 [Enzymatic activity/volume] in Serum or Plasma (test code = 6768-6) Aspartate aminotransferase 13 IU/L 0-40 [Enzymatic activity/volume] in Serum or Plasma (test code = 1920-8) Alanine aminotransferase 9 IU/L 0-32 [Enzymatic activity/volume] in Serum or Plasma (test code = 1742-6) [facility] W Auto Differential panel - Blood 2020-04-18 00:00:00 Test Item Value Reference Range Interpretation Comments Leukocytes [#/volume] in Blood 4.4 x10e3/uL 3.4-10.8 by Automated count (test code = 6690-2) Erythrocytes [#/volume] in 3.66 x10e6/uL 3.77-5.28 L Blood by Automated count (test code = 789-8) Hemoglobin [Mass/volume] in 10.6 g/dL 11.1-15.9 L Blood (test code = 718-7) Hematocrit [Volume Fraction] of 33.5 % 34.0-46.6 L Blood by Automated count (test code = 4544-3) MCV [Entitic volume] by 92 fL 79-97 Automated count (test code = 787-2) MCH [Entitic mass] by Automated 29.0 pg 26.6-33.0 count (test code = 785-6) MCHC [Mass/volume] by Automated 31.6 g/dL 31.5-35.7 count (test code = 786-4) Erythrocyte distribution width 14.1 % 11.7-15.4 [Ratio] by Automated count (test code = 788-0) Platelets [#/volume] in Blood 181 x10e3/uL 150-450 by Automated count (test code = 777-3) Neutrophils/100 leukocytes in 67 % not estab. Blood by Automated count (test code = 770-8) Lymphocytes/100 leukocytes in 22 % not estab. Blood by Automated count (test code = 736-9) Monocytes/100 leukocytes in 9 % not estab. Blood by Automated count (test code = 5905-5) Eosinophils/100 leukocytes in 1 % not estab. Blood by Automated count (test code = 713-8) Basophils/100 leukocytes in 1 % not estab. Blood by Automated count (test code = 706-2) immature cells (test code = supervisor statement clerks immature cells) Neutrophils [#/volume] in Blood 2.9 x10e3/uL 1.4-7.0 by Automated count (test code = 751-8) Lymphocytes [#/volume] in Blood 1.0 x10e3/uL 0.7-3.1 by Automated count (test code = 731-0) Monocytes [#/volume] in Blood 0.4 x10e3/uL 0.1-0.9 by Automated count (test code = 742-7) Eosinophils [#/volume] in Blood 0.0 x10e3/uL 0.0-0.4 by Automated count (test code = 711-2) Basophils [#/volume] in Blood 0.0 x10e3/uL 0.0-0.2 by Automated count (test code = 704-7) Immature granulocytes/100 0 % not estab. leukocytes in Blood by Automated count (test code = 69819-2) Immature granulocytes 0.0 x10e3/uL 0.0-0.1 [#/volume] in Blood by Automated count (test code = 55361-7) Nucleated erythrocytes/100 supervisor statement clerks leukocytes [Ratio] in Blood by Automated count (test code = 20330-5) Morphology [Interpretation] in supervisor statement clerks Blood Narrative (test code = 23398-3) [facility] 1996 [facility] - Serum or Plasma 2020-04-18 00:00:00 Test Item Value Reference Range Interpretation Comments Cholesterol [Mass/volume] in Serum 166 mg/dL 100-199 or Plasma (test code = 2093-3) Triglyceride [Mass/volume] in Serum 91 mg/dL 0-149 or Plasma (test code = 2571-8) Cholesterol in HDL [Mass/volume] in 65 mg/dL >39 Serum or Plasma (test code = 2085-9) Cholesterol in VLDL [Mass/volume] 17 mg/dL 5-40 in Serum or Plasma by calculation (test code = 68131-3) Cholesterol in LDL [Mass/volume] in 84 mg/dL 0-99 Serum or Plasma by calculation (test code = 85292-9) Laboratory comment [Text] in Report supervisor statement clerks Narrative (test code = 64645-9) [facility], [id number] 00:00:00 Test Item Value Reference Range Interpretation Comments interpretation (test code = note interpretation) pdf (test code = pdf) not applicable [facility] CKD [id number] 00:00:00 Test Item Value Reference Range Interpretation Comments interpretation (test code = note interpretation) pdf (test code = pdf) . [facility] [id number] 00:00:00 Test Item Value Reference Range Interpretation Comments pdf (test code = pdf) not applicable [facility] HospitalHemoglobin A1c/Hemoglobin.total in [id number] 00:00:00 Test Item Value Reference Range Interpretation Comments Hemoglobin A1c/Hemoglobin.total in 5.3 % 4.8-5.6 Blood (test code = 4548-4) [facility] [address] [place], [place] [address] Patient Name: Shelby Escobedo Medical Record#: [id number] Address: [address] [place] [address] City/State/Zip: [place] [address]: Christiano Finnegan MD Insurance: Medicare A B /Age/Sex: 1950/70/F Self Pay Admit/Reg Date: 04/10/[address]: Christiano Finnegan MD Location: [address] PCP: Md JENNY Castro Date of Service: 04/11/21 Order (s): XR chest 1V CPT Code: 44828 Report Number:[id number] Reason for Exam: post AICD placement EXAMINATION: XR chest 1V CLINICAL INDICATION: Female, 70 years old with post AICD placement COMPARISON: Chest radiograph dated 04/10/2021 FINDINGS: Single view(s) of the chest submitted. Support Devices: Left 2-lead AICD/pacemaker has been placed with one lead overlying the right atrium and second lead overlying the right ventricle. Right internal jugular central venous catheter is in unchanged placement. Heart: Cardiac silhouette is stable in size. Mediastinum: Mediastinal contours are unchanged. Lungs: Patchy airspace opacities at the right upper lung appear decreased from prior. Bibasilar airspace opacities are relatively unchanged from prior.Pleura: No pleural effusion is identified. No pneumothorax is present. Bones: Visualized skeleton is normal. IMPRESSION: 1. Interval placement of left 2- lead AICD/pacemaker is above. 2. Decreased patchy airspace opacities in the right upper lung. 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 [employer] Dictated By: Luisa Willard MD 04/11/211108 Signed By: Luisa Willard MD 04/11/211108 TD/TT: 04/11/211108 Tech: [id number] cc: [id number]; PCPNO* Christiano Finnegan MD; PcpMd Jm MDXR chest 1V [address] [address] Patient Name: Shelby Escobedo Medical Record#: [id number] Address: [address] [place] [address] City/State/Zip: [place] [address]: Christiano Finnegan MD Insurance: Medicare A B /Age/Sex: 1950/70/F Self Pay Admit/Reg Date: 04/10/[address]: Christiano Finnegan MD Location: [facility]/ PCP: Pcp-Md JENNY Murrell Date of Service: 04/10/21 Order (s): XR chest 1V CPT Code: 33077 Report Number:[id number] Reason for Exam: preprocedure LOCATION: R16 CHEST 1 VIEW INDICATION: Preop. Procedure COMPARISON: None available FINDINGS: Large bore right IJ catheter tip is at the mid SVC. There is mild prominence of the central bronchovascular markings. There may be small residual patchy infiltrates and/or edema (for example inthe right upper lobe, bibasilar). No evidence of pleural effusion or thorax. Cardiomediastinal silhouette is within normal limits allowing for technique. Hypertrophic changes along spine. IMPRESSION: 1. Large bore right IJ catheter tip is at the mid SVC. Mild prominence of the central bronchovascular markings, likely reflecting vascular congestion. 2. Small residual patchy infiltrates and/or patchy edema (for example in the right upper lobe, bibasilar). Electronically signed by: Fanny Fuchs MD 04/10/2021 7:24 AM SUPER[employer] Dictated By: Fanny Dickey MD 04/10/21712 Signed By: Fanny Dickey MD 04/10/21712 TD/TT: 04/10/21712 Tech: [id number] cc: [id number]; PCPNO* Christiano Finnegan MD; PcpMd JENNY [facility] Electro[facility]ogram [address] [address] Patient Name: Shelby Escobedo Medical Record#: [id number] Address: [address] [place] [address] City/State/Zip: [place] [address]: Christiano Finnegan MD Insurance: Medicare A B /Age/Sex: 1950/70/F Self Pay Admit/Reg Date: 04/10/[address]: Christiano Finnegan MD [facility] PCP: Md JENNY Castro Date of Service: 04/10/21 Order (s): EKG Electrocardiogram CPT Code: 73558 Report Number: [id number] Reason for Exam: preprocedure Sinus rhythm Left bundle branch block Summary: Abnormal ECG Dictated By: Evgeny Benitez MD 04/10/21658 Signed By: Evgeny Benitez MD 04/10/21819 TD/TT: 04/10/21658 Tech: [id number] cc: [id number]; PCPNO* Christiano Finnegan MD; PcpMd JENNY Oneal
[2021-08-20 01:15] VITALS: BMI 36.6
[2021-08-20] MEDS ORDERED: TRAZODONE 50 MG TABLET PO PRN (01:30)
[2021-08-20] MEDS ORDERED: ONDANSETRON 4 MG/2 ML VIAL IV PRN (01:30)
[2021-08-20] MEDS ORDERED: ACETAMINOPHEN 500 MG TAB PO PRN (01:30)
[2021-08-20] MEDS ORDERED: VANCOMYCIN 1 GM in NA CHLORIDE 0.9% 250 ML IVPB SCH (01:36)
--- NOTE | 2021-08-20 01:51 | P.HP ---
Certification for Inpatient Patient admitted to: Inpatient With expected LOS: >2 Midnights Patient will require the following post-hospital care: None Practitioner: I am a practitioner with admitting privileges, knowledge of patient current condition, hospital course, and medical plan of care. Services: Services provided to patient in accordance with Admission requirements found in Title 42 Section 412.3 of the Code of Federal Regulations Patient History Date of Service: 08/20/21 Reason for admission: NSTEMI History of Present Illness: 71-year-old female history of ESRD on HD, chronic CHFunknown EF, insulin- dependent diabetes, hypertension presented to dialysis earlier today reporting fatigue malaise and chills was noted to have low-grade fever around 99 degrees blood cultures were obtained at that time patient was sent to the emergency department for further evaluation, at the outside hospital her labs were significant for elevated troponin high-sensitivity around 5000 repeat down to around 4500 prior to arrival to our facility her white count was normal although she did have significant bandemia. She recently had her right subclavian dialysis catheter changed on Tuesday of last week after the previous catheter was noted to be "crusty". She was transferred to our facility as at the outside hospital they are unable to perform dialysis. She will be admitted for further evaluation and management of NSTEMI, bandemia. Allergies No Known Allergies Allergy (Unverified 08/20/21 00:45) - Past Medical/Surgical History Has patient received pneumonia vaccine in the past: Yes Diabetic: Yes -: HTN -: IDDM -: ESRD -: Hypertension -: CHF -: Dialysis catheter right chest Psychosocial/ Personal History: Patient lives at home with her - Family History Mother -: Diabetes Father -: Cancer - Social History Smoking Status: Former smoker Alcohol use: No CD- Drugs: No Caffeine use: Yes Place of Residence: Home Review of Systems 10-point ROS is otherwise unremarkable General: Chills, Weakness, Malaise Physical Examination - Physical Exam General: Alert, In no apparent distress, Oriented x3, Obese HEENT: Atraumatic, PERRLA, Mucous membr. moist/pink, EOMI, Sclerae nonicteric Neck: Supple, 2+ carotid pulse no bruit, No LAD, Without JVD or thyroid abnormality Respiratory: Clear to auscultation bilaterally, Normal air movement Cardiovascular: Regular rate/rhythm, Normal S1 S2 Gastrointestinal: Normal bowel sounds, No tenderness Musculoskeletal: No tenderness Integumentary: No rashes Neurological: Normal speech, Normal strength at 5/5 x4 extr, Normal tone, Normal affect Assessment and Plan - Plan Assessment: NSTEMI, CHFunknown EF ESRD on HD Diabetes mellitus type 2insulin-dependent Bandemia Hypertension Plan: NSTEMI, CHFunknown EF: Cardiology and nephrology consulted, echocardiogram ordered but for cardiac evaluation for NSTEMI and to rule out endocarditis given bandemia, malaise and chills and recent need for dialysis catheter exchange. Patient for but from nephrology/cardiology continue home medications trend troponins monitor on telemetry. Chest pain-free. ESRD on HD: Nephrology consult in place at approximate 1 hour dialysis yesterday. Diabetes mellitus type 2insulin-dependent: ACH S Accu-Chek, sliding scale insulin. Bandemia: Blood cultures were obtained at outside hospital continue broad- spectrum antibiotics obtain echocardiogram to rule out endocarditis. Hypertension: Continue home medications. DVT PPX: Heparin Code status: Full Discharge Plan: Home Plan to discharge in: 48 Hours - Advance Directives Does patient have a Living Will: No Does patient have a Durable POA for Healthcare: No - Code Status/Comfort Care Code Status Assessed: Yes (Full code) Critical Care: No Time Spent Managing Pts Care (In Minutes): 70
[2021-08-20] MEDS ORDERED: CEFEPIME 1 GM in NA CHLORIDE 0.9% 100 ML IV ONE (02:00)
[2021-08-20] MEDS ORDERED: VANCOMYCIN 1.75 GM in NA CHLORIDE 0.9% 500 ML IVPB ONE (02:00)
[2021-08-20] MEDS: HYDROCODONE/APAP 5/325 MG TAB PO PRN (02:15)
[2021-08-20] MEDS ORDERED: VANCOMYCIN 1 GM/VIAL ONE (02:15)
[2021-08-20] MEDS ORDERED: NA CHLORIDE 0.9% 500 ML ONE ×2 (02:16→14:20)
[2021-08-20] MEDS: METOPROLOL TAR 25 MG TAB PO SCH ×2 (05:50→18:00)
[2021-08-20 06:39] LABS: Absolute Lymphocytes (CBC) 0.3 K/uL (0.7-4.9); Hematocrit 25.9 % (36.0-45.0); Lymphocytes % 3.5 % (15.3-44.8); MCV 98.7 fL (80-100); MPV 9.6 fL (7.6-11.3); RBC Red Blood Cell Count 2.62 M/uL (3.86-4.86)
[2021-08-20 07:10] LABS: Albumin 2.1 g/dL (3.4-5.0); Bilirubin Total 0.9 mg/dL (0.2-1.0); Potassium 4.3 mmol/L (3.5-5.1); Protein, Total 5.8 g/dL (6.4-8.2)
[2021-08-20] MEDS: INSULIN -REGULAR HUMAN 50 UNIT/0.5 ML ML SQ SCH ×4 (07:53→21:07)
[2021-08-20] MEDS: FUROSEMIDE 40 MG TABLET PO SCH (07:59)
[2021-08-20] MEDS: lisinopriL 5 MG TAB PO SCH (07:59)
[2021-08-20] MEDS: CLOPIDOGREL 75 MG TABLET PO SCH (08:00)
[2021-08-20] MEDS: ASPIRIN EC 81 MG TAB PO SCH (08:00)
[2021-08-20 08:04] LABS: Blood Morphology Comment NOT SEEN (NOT SEEN); Platelet Estimate DECR
[2021-08-20] MEDS ORDERED: MORPHINE 2 MG/ML SYR IV ONE (08:15)
[2021-08-20] MEDS ORDERED: ENOXAPARIN 100 MG/ML SYR SQ SCH (09:00)
[2021-08-20] MEDS ORDERED: HEPARIN 5000 UNIT/ML 1 ML VIAL SQ SCH (09:00)
[2021-08-20] MEDS ORDERED: CEFEPIME 1 GM in NA CHLORIDE 0.9% 100 ML IV SCH (09:00)
[2021-08-20 09:56] LABS: Protime INR 1.13
--- NOTE | 2021-08-20 12:13 | RAD REPORT ---
EXAM DESCRIPTION: CTThoracic Spine Wo Cont08/20/2021 11:52 am CLINICAL HISTORY: Back pain/vertebral abscess COMPARISON: None TECHNIQUE: Computed axial tomography of thoracic spine was obtained with coronal and sagittal recons truction. All CT scans are performed using dose optimization technique as appropriate and may include automated exposure control or mA/KV adjustment according to patient size. FINDINGS: Evaluation of the spinal canal/neural foramina is limited on an unenhanced CT scan Cortical irregularity involves the superior aspect of the T11 vertebral body. Adjacent sclerosis is p resent. Vacuum phenomena involves the T11-12 disc. No fracture or dislocation Mild spondylosis No paraspinal mass visualized. Evaluation of the thecal sac is limited IMPRESSION: Cortical regularity involves the superior aspect of the T11 vertebral body with adjacent sclerosis. This may represent an invaginated Schmorl's node. Osteomyelitis has a similar appearance. This should be correlated clinically with appropriate lab values. MRI with contrast would be helpful for further evaluation.
[2021-08-20] MEDS ORDERED: LIDOCAINE/PRILOCAINE CREAM TOP PRN (12:19)
--- NOTE | 2021-08-20 12:21 | RAD REPORT ---
EXAM DESCRIPTION: CTSpine Lumbar Wo Con08/20/2021 11:52 am CLINICAL HISTORY: Back pain/vertebral abscess COMPARISON: None TECHNIQUE: Computed axial tomography lumbar spine was obtained with coronal and sagittal reconstruct ion. All CT scans are performed using dose optimization technique as appropriate and may include automated exposure control or mA/KV adjustment according to patient size. FINDINGS: Evaluation of the spinal canal/neural foramina limited on an unenhanced CT scan No fracture is seen. No dislocation Mild anterior subluxation L4 on L5. Small to moderate right paracentral structure Spondylosis L2-3 appears to result in moderate to marked central spinal stenosis No paraspinal mass seen IMPRESSION: Small to moderate right paracentral structure L4-5 probably a disc herniation. An epidur al abscess can have a similar appearance but probably is less likely. MRI with contrast is recommende d Spondylosis L2-3 appears to result in moderate to marked central spinal stenosis
--- NOTE | 2021-08-20 12:26 | P.CNS ---
Date of Consult: 08/20/21 Reason for Consult: ESRD, management of dialysis Requesting Physician: Jens Toure Chief Complaint: NSTEMI History of Present Illness: 71-year-old female history of ESRD on HD, pt reports of prior MT but denies PCI/stenting, insulin-dependent diabetes, hypertension presented to the [place] dialysis clinic yesterday reporting fatigue, malaise and noted to have chills on treatment but no fevers so BCx were collected by the facility and she was sent to the ER where she was found to have elevated troponins, left shift/bandemia and was therefore admitted. Pt has acknowledged some CP (non specific, non radiating and not currently present) and dyspnea (greater when up and ambulating) and a LHC is planned for this afternoon. She has reported severe mid back pain so CT scans of the thoracic and lumbar spine have been ordered. Her HD treatment yesterday was cut short due to above. Allergies No Known Allergies Allergy (Unverified 08/20/21 00:45) Home Medications: Aspirin [Aspirin EC 81 MG] 81 mg PO DAILY 08/20/21 Atorvastatin Calcium [Lipitor] 20 mg PO BEDTIME 08/20/21 Clopidogrel Bisulfate [Plavix] 75 mg PO DAILY 08/20/21 Insulin NPH Hum/Reg Insulin Hm [Novolin 70-30 100 Unit/ml Vial] 15 unit SQ BID 08/20/21 Lisinopril [Zestril] 2.5 mg PO DAILY 08/20/21 Metoprolol Tartrate 12.5 mg PO BID 08/20/21 Multivitamin [Multiple Vitamins] 1 each PO DAILY 08/20/21 Sitagliptin Phosphate [Januvia] 50 mg PO DAILY 08/20/21 Trazodone [Desyrel] 50 mg PO BEDTIME 08/20/21 - Past Medical/Surgical History Diabetic: Yes -: HTN -: IDDM -: ESRD -: Hypertension -: CHF -: Dialysis catheter right chest Psychosocial/ Personal History: Patient lives at home with her - Family History Mother Medical History: Diabetes Father Medical History: Cancer - Social History Alcohol use: No CD- Drugs: No Caffeine use: Yes Place of Residence: Home Review of Systems General: Chills, Malaise Eyes: Unremarkable ENT: Unremarkable Respiratory: SOB with Excertion Cardiovascular: Chest Pain Gastrointestinal: Unremarkable Genitourinary: Unremarkable Musculoskeletal: Back Pain Integumentary: Unremarkable Neurological: Weakness, Unremarkable Lymphatics: Unremarkable Physical Examination Temp Pulse Resp BP Pulse Ox 99.0 F 69 17 121/59 L 97 08/20/21 08:00 08/20/21 08:00 08/20/21 09:05 08/20/21 08:00 08/20/21 09:05 General: Alert, In no apparent distress, Cooperative HEENT: Atraumatic, Normocephalic, EOMI Neck: Supple Respiratory: Clear to auscultation bilaterally, Normal air movement Cardiovascular: Normal pulses, Regular rate/rhythm (Rt IJ TDC, Lt UE AVF with thrill and bruit) Gastrointestinal: Soft and benign, Non-distended Musculoskeletal: No swelling, No erythema Integumentary: No rashes, No breakdown Neurological: Normal speech, Normal affect Laboratory Data (last 24 hrs) 08/20/21 09:30: PT 12.5, INR 1.13, APTT 26.7 08/20/21 09:09: PT Cancelled, INR Cancelled 08/20/21 06:30: Sodium 130 L, Potassium 4.3, BUN 48 H, Creatinine 5.63 H*, Glucose 250 H, Total Bilirubin 0.9, AST 46 H, ALT 29, Alkaline Phosphatase 87 08/20/21 06:30: WBC 8.2, Hgb 8.9 L, Hct 25.9 L, Plt Count 80 L Conclusions/Impression: 1. ESRD 2. Malaise 3. NSTEMI 4. Elevated inflammatory markers 5. Abnormal diagnostic imaging of thoracic and lumbar spine with 6. Anemia 2nd to CKD/inflammation 1. Will plan to dialyze today post C as pt received only partial HD yesterday. Will perform HD for both metab clearance and UF as tolerated. 2. Will f/u BCx collected at the [place] unit and sent to [facility]. There is the possibility of CRBSI and CT imaging can not rule out osteo/other, pt does have elevated inflammatory markers. Agree with empiric broad spectrum Abx coverage, pt received Vanc LD, cont supplemental dosing with HD and follow levels. 3. F/u Cardiology findings on LHC and reccs. 4. Will plan to use pt's Lt radiocephalic AVF for HD today, placed in Feb but not used yet as clearance had not been given by the vascular access center. If fistula working well and infection confirmed, will seek to remove TDC for source control. Thank you for this referral, Oliverio Waddell MD, [facility]
--- NOTE | 2021-08-20 12:32 | P.PN ---
Subjective Date of Service: 08/20/21 Chief Complaint: NSTEMI Subjective: Worsening (Complain of intense back pain Still persistent elevated troponin Evaluated by cardiology Scheduled for cardiac cath today) Physical Examination - Vital Signs Temperature: 99.0 F Blood Pressure: 121/59 Pulse: 69 Respirations: 17 Pulse Ox (%): 97 - Studies Laboratory Data (last 24 hrs) 08/20/21 09:30: PT 12.5, INR 1.13, APTT 26.7 08/20/21 09:09: PT Cancelled, INR Cancelled 08/20/21 06:30: Sodium 130 L, Potassium 4.3, BUN 48 H, Creatinine 5.63 H*, Glucose 250 H, Total Bilirubin 0.9, AST 46 H, ALT 29, Alkaline Phosphatase 87 08/20/21 06:30: WBC 8.2, Hgb 8.9 L, Hct 25.9 L, Plt Count 80 L Assessment And Plan - Code Status/Comfort Care Code Status: Full Code Physician Review: Patient Assessed, Agree with Above Assessment and Plan Physician Review Additional Text: - Physical Exam General: Alert, In no apparent distress, Oriented x3, morbidly obese, lying in supine position HEENT: Atraumatic, PERRLA, Mucous membr. moist/pink, EOMI, Sclerae nonicteric Neck: Supple, 2+ carotid pulse no bruit, No LAD, Without JVD or thyroid abnormality Respiratory: Clear to auscultation bilaterally, Normal air movement Cardiovascular: Regular rate/rhythm, Normal S1 S2 Gastrointestinal: Normal bowel sounds, No tenderness Musculoskeletal: Examination Limited by pain but tenderness in the lumbar spine area Integumentary: No rashes Neurological: Normal speech, Normal strength at 5/5 x4 extr, Normal tone, Normal affect Assessment and Plan Feverpossibly due to CLABSI Leukocytosis with bandemia Thrombocytopenia NSTEMI, CHFunknown EF ESRD on HD Diabetes mellitus type 2insulin-dependent Hypertension Persistent low back painrule out fracture versus vertebral osteomyelitis Plan: -Obtain echocardiogram Follow-up plan for cardiac cath today He HD today per nephrology group Obtain CT of the lumbar spine to rule out vertebral fracture or osteomyelitis since recent dialysis catheter change and new onset fever Follow blood culturealready done at dialysis unit Obtain repeat in a.m. Continue empirical antibiotics with vancomycin Continue pain regimen Continues Scale with Accu-Chek Low platelet, hold heparin for now, SCDs for DVT prophylaxis
[2021-08-20] MEDS ORDERED: FENTANYL CITR 100 MCG/2 ML ONE ×2 (14:46→15:05)
[2021-08-20] MEDS ORDERED: HEPA 1000U/500MLS 2,000 UNIT/1,000 ML BAG IV ONE (15:04)
[2021-08-20] MEDS ORDERED: CLOPIDOGREL 75 MG TABLET ONE (15:05)
[2021-08-20] MEDS ORDERED: HEPARIN 5000 UNIT/ML 1 ML VIAL ONE (15:05)
[2021-08-20] MEDS ORDERED: MIDAZOLAM HCL 2 MG/2 ML INJ ONE (15:05)
[2021-08-20] MEDS ORDERED: ASPIRIN 325 MG TAB ONE (15:05)
[2021-08-20] MEDS ORDERED: TICAGRELOR 90 MG TABLET PO ONE (15:05)
[2021-08-20] MEDS ORDERED: ATROPINE SULF 1 MG/10 ML SYR IV ONE (15:06)
[2021-08-20] MEDS ORDERED: HEPARIN 10,000 UNIT/10 ML VIAL IV ONE (15:06)
[2021-08-20] MEDS ORDERED: HEPA 1000U/500MLS 1,000 UNIT/500 ML BAG IV ONE ×2 (16:03→16:23)
[2021-08-20] MEDS ORDERED: REGADENOSON 0.4 MG/5 ML SYR IV ONE (16:05)
[2021-08-20 18:47] VITALS: O2SAT 96
--- NOTE | 2021-08-20 20:11 | CON ---
Date of Consultation: 08/20/2021 Reason For Consultation: Non-ST elevation myocardial infarction. History Of Present Illness: A 71-year-old female with history of end-stage renal disease, on hemodia lysis, chronic systolic heart failure with ejection fraction less than 30 and has an ICD in place, pr esented to the hospital due to generalized weakness. She has been having some chest pain as well, pr essure-like, no radiation. Does not have any shortness of breath. At the time of my evaluation, the patient was asymptomatic and lying flat in bed. Past Medical History: As outlined above in the HPI. Medications: Refer to reconciliation sheet for detailed list. Allergies: NO KNOWN DRUG ALLERGIES. Family History: No premature coronary artery disease or cancer. Social History: She does not smoke or drink. Does not use any drugs. Review of Systems: All systems reviewed and they were negative except for what mentioned in HPI. Physical Examination: Vital Signs: Reviewed. Head and Neck: Pupils are equal, reactive to light. Intact eye movements. Mild JVD elevation. Nec k is supple. Thyroid is not enlarged. Lungs: Clear to auscultation bilaterally. No rhonchi, wheezing, or crackles. No accessory muscle u se. Heart: Irregular. No extra sounds. Abdomen: Soft, nontender. Bowel sounds positive. No organomegaly. No masses or hernia. No rigidi ty or rebound. Extremities: No clubbing or cyanosis. Intact pulses. Skin: No rash. Neurologic: Alert, awake, oriented x3. No acute focal deficits appreciated. Investigations: Troponin was 3572 and trending down. Creatinine is 5.61. Hemoglobin is 8.9. Assessment And Recommendations: 1.Non-ST elevation myocardial infarction. Agree with aspirin and she is on Plavix to continue that, and we will plan for coronary angiogram this afternoon and then further plan according to the result s of that. 2.Congestive heart failure. Agree with Lasix 40 mg daily and low-salt diet and daily body weight as recommended. 3.Hypertension. Blood pressure is controlled. SR/MODL Voice ID: [id number] Report ID: [id number]
[2021-08-20] MEDS: ATORVASTATIN 20 MG TAB PO SCH (21:07)
[2021-08-21] MEDS ORDERED: CEFEPIME 1 GM in NA CHLORIDE 0.9% 100 ML IV SCH (02:00)
--- NOTE | 2021-08-21 02:51 | OP ---
Date of Procedure: 08/20/2021 Surgeon: JUDI BROOKS Procedures Performed: 1.Selective coronary angiogram. 2.Left heart catheterization. Indication: Non-ST elevation myocardial infarction. Access: Right radial artery 6-Setswana, closed with TR band. Complications: None. Bleeding: Less than 10 mL. Anesthesia: Total sedation time was 60 minutes, used fentanyl and Versed. Description Of Procedure: After risks, benefits, and alternatives were explained, the patient agreed to procedure and signed informed consent. The patient was brought into the cardiac catheterization laboratory, prepped and draped in usual sterile fashion. Then, I accessed right radial artery using pediatric micropuncture kit, placed a 6-Setswana slender sheath, and took a 5-Setswana [place] 4.0 catheter into the aortic root, engaged left main and right coronary artery, took standard views. Catheter wa s pushed across the aortic valve into the LV. LVEDP measured and pullback did not record gradient. Then, we took an XB 3.5 into the aortic root, engaging left main, and gave systemic heparin to assure ACT level above 250. I took a short Runthrough wire into the left circumflex into the OM stump and it was a RADIO INTERFERENCE INVESTIGATOR and not an acute occlusion. Then, I attempted to do FFR of the LAD and the RCA; however , there was equipment malfunction, so I decided to abort the procedure and plan for FFR of LAD and RC A at a later time. Findings: 1.Left main is large and normal. 2.LAD proximal portion appears normal, but then at the diagonal takeoff becomes very narrow and ther e is diffuse long stenosis about 60% and diagonal branch also has proximal 60% stenosis. 3.The left circumflex is patent with a RADIO INTERFERENCE INVESTIGATOR of the proximal OM1 branch. 4.RCA is very small vessel proximally to mid. There is diffusely diseased 60% stenosis. 5.LVEDP normal at 12 mmHg. Conclusion: Coronary artery disease as above that is diffuse. Recommedation: FFR of LAD and RCA and revascularize if needed. SR/MODL Voice ID: [id number] Report ID: [id number]
[2021-08-21] MEDS: METOPROLOL TAR 25 MG TAB PO SCH ×2 (05:52→18:13)
[2021-08-21] MEDS: HYDROCODONE/APAP 5/325 MG TAB PO PRN ×3 (05:53→23:07)
[2021-08-21 06:36] LABS: Urine Appearance Clear (Clear); Urine Blood 1+ (Negative); Urine Color Yellow (Yellow); Urine Glucose Negative (Negative); Urine Protein 3+ (Negative); Urine Specific Gravity 1.025 (1.005-1.030); Urine Urobilinogen 0.2 mg/dL (0.2-1.0)
[2021-08-21 07:40] LABS: Urine Microscopic Reflex ORDER UMIC
[2021-08-21 07:49] LABS: Urine Amorphous Sediment 3+ /HPF (NONE SEEN); Urine Bacteria 20-50 /HPF (<20); Urine Mucus S /HPF (NONE SEEN); Urine RBC <5 /HPF (NONE SEEN); Urine Yeast FEW (NONE SEEN)
--- NOTE | 2021-08-21 07:55 | ECHO ---
HEIGHT: 5 ft 5 in WEIGHT: 220 lb 0 oz DATE OF STUDY: 08/20/[address]: Philip Johnson NP 2-DIMENSIONAL: YES M.MODE: YES DOPPLER: YES COLOR FLOW: YES TDS: PORTABLE: YES DEFINITY: BUBBLE STUDY: DIAGNOSIS: NON ST ELEVATION MYOCARDIAL INFARCTION, RULE OUT ENDOCARDITIS CARDIAC HISTORY: CATHERIZATION: SURGERY: PROSTHETIC VALVE: PACEMAKER: MEASUREMENTS (cm) DIASTOLIC (NORMALS) SYSTOLIC (NORMALS) IVSd 1.2 (0.6-1.2) LA Diam 4.6 (1.9-4.0) LVEF 35% LVIDd 5.4 (3.5-5.7) LVIDs 4.7 (2.0-3.5) %FS 13% LVPWd 1.3 (0.6-1.2) Ao Diam 2.9 (2.0-3.7) 2 DIMENSIONAL ASSESSMENT: RIGHT ATRIUM: NORMAL LEFT ATRIUM: NORMAL RIGHT VENTRICLE: NORMAL LEFT VENTRICLE: DEPRESSED FUNCTION TRICUSPID VALVE: MODERATE TRICUSPID REGURGITATION MITRAL VALVE: MILD MITRAL REGURGITATION PULMONIC VALVE: MILD PULMONIC INSUFFICIENCY AORTIC VALVE: MILD AORTIC INSUFFICIENCY PERICARDIAL EFFUSION: NORMAL AORTIC ROOT: NORMAL LEFT VENTRICULAR WALL MOTION: MODERATE GLOBAL HYPOKINESIS DOPPLER/COLOR FLOW: SEE BELOW COMMENTS: MODERATELY DEPRESSED LEFT VENTRICULAR EJECTION FRACTION 30-35%. MODERATE GLOBAL HYPOKINESIS. MILD MITRAL REGURGITATION, MILD PULMONIC INSUFFICIENCY. MODERATE TRICUSPID REGURGITATION WITH PACEMAKER WIRE IN THE RIGHT VENTRICLE. SEVERE PULMONARY HYPERTENSION WITH RIGHT VENTRICULAR SYSTOLIC PRESSURE GREATER THAN 60 mmHg TECHNOLOGIST: ALLISON LEES
[2021-08-21 08:06] LABS: Absolute Lymphocytes (CBC) 0.3 K/uL (0.7-4.9); Hematocrit 25.3 % (36.0-45.0); Lymphocytes % 3.7 % (15.3-44.8); MCV 97.7 fL (80-100); MPV 10.4 fL (7.6-11.3); RBC Red Blood Cell Count 2.59 M/uL (3.86-4.86)
[2021-08-21 08:25] LABS: Urine Bilirubin 1+ (Negative)
[2021-08-21 08:58] LABS: Albumin 1.9 g/dL (3.4-5.0); Bilirubin Total 0.7 mg/dL (0.2-1.0); Potassium 4.5 mmol/L (3.5-5.1); Protein, Total 5.8 g/dL (6.4-8.2)
[2021-08-21] MEDS ORDERED: LIDOCAINE/PRILOCAINE CREAM TOP SCH (09:00)
[2021-08-21] MEDS: CLOPIDOGREL 75 MG TABLET PO SCH (09:16)
[2021-08-21] MEDS: ASPIRIN EC 81 MG TAB PO SCH (09:18)
[2021-08-21] MEDS: lisinopriL 5 MG TAB PO SCH (09:19)
[2021-08-21] MEDS: INSULIN -REGULAR HUMAN 50 UNIT/0.5 ML ML SQ SCH ×4 (09:19→20:40)
[2021-08-21] MEDS: FUROSEMIDE 40 MG TABLET PO SCH (09:20)
--- NOTE | 2021-08-21 09:57 | P.PN ---
Subjective Date of Service: 08/21/21 Chief Complaint: NSTEMI Subjective: No new changes, No C/O voiced (Status post cardiac cath yesterday. still inability to move the legs. Still persistent low back pain. States onset of pain was 4 days ago otherwise was ambulatory at baseline) Physical Examination - Vital Signs Temperature: 97.4 F Blood Pressure: 117/59 Pulse: 70 Respirations: 16 Pulse Ox (%): 94 - Studies Laboratory Data (last 24 hrs) 08/21/21 07:11: Sodium 130 L, Potassium 4.5, BUN 67 H, Creatinine 7.10 H* D, Glucose 217 H, Total Bilirubin 0.7, AST 47 H, ALT 34, Alkaline Phosphatase 92 08/21/21 07:11: WBC 8.5, Hgb 8.7 L, Hct 25.3 L, Plt Count 90 L 08/20/21 09:30: PT 12.5, INR 1.13, APTT 26.7 Assessment And Plan Physician Review: Patient Assessed, Agree with Above Assessment and Plan Physician Review Additional Text: Status post cardiac cath yesterday CT of the lumbar and thoracic spine shows lesions at T12 as well as L4-L5 worrisome for osteomyelitis versus spondylarthritis - Physical Exam General: Alert, In no apparent distress, Oriented x3, morbidly obese, lying in supine position HEENT: Atraumatic, PERRLA, Mucous membr. moist/pink, EOMI, Sclerae nonicteric Neck: Supple, 2+ carotid pulse no bruit, No LAD, Without JVD or thyroid abnormality Respiratory: Clear to auscultation bilaterally, Normal air movement Cardiovascular: Regular rate/rhythm, Normal S1 S2 Gastrointestinal: Normal bowel sounds, No tenderness Musculoskeletal: Examination Limited by pain but tenderness in the lumbar spine area Integumentary: No rashes Neurological: Normal speech, power 2 out of 5 bilateral lower extremity/paraparesis, normal in upper extremities, Normal affect Assessment and Plan Feverpossibly due to CLABSI Leukocytosis with bandemia Thrombocytopenia NSTEMI, CHFwith low EF, status post AICD ESRD on HD Diabetes mellitus type 2insulin-dependent Hypertension Persistent low back painwith paraparesis, imaging unable to rule out vertebral osteomyelitis Plan: -Status post cardiac cath with noted EF of 30%, diffuse lesions, unable to do FFR of RCA and left circumflex due to 60% lesions Cardiology plan repeat cardiac cath with FFR in the future Still persistent paraparesis, we are unable to do MRI due to AICD, will need transfer for neurosurgical evaluation -TTE shows EF of 35 to 40% with wall hypokinesis Follow pending full blood culture Continue Vanco/cefepime for empirical bacteremia since indwelling dialysis catheter Continue HD today/MWF per nephrology group Continue pain regimen and PT and OT Continue insulin sliding scale with Accu-Checks Low platelet, hold heparin for now, SCDs for DVT prophylaxis Patient and son discussed with today. They are agreeable with plan for transfer, continue PT and OT until transferred Time Spent Managing PTS Care (In Minutes): 35
--- NOTE | 2021-08-21 10:00 | P.DS ---
Admission Date: 08/20/21 Discharge Date: 08/21/21 Disposition: TRANSFER TO [facility] Discharge Condition: FAIR Reason for Admission: NSTEMI Hospital Course: Patient with history of ESRD on HD via permacath, status post change 1 year ago, noted with new onset fever as well as low back pain during dialysis 3 days ago at [facility]. Blood cultures obtained and patient was sent to the emergency room. COVID screen was negative. Chest x-ray shows nonspecific changes. Patient was a started on empirical Vanco and cefepime for presumed CLABSI . TTE echocardiogram done shows low EF of 40% with hypokinesis. Patient does have history of systolic CHF and has indwelling AICD. She was evaluated by cardiology for MAC elevated troponin of about 3500. She underwent cardiac cath with findings of diffuse stenosis with some reaching 60%. Attempt was made to have FFR of the lesions done but was unsuccessful due to equipment malfunction. Patient also was noted with (On admission which was worrisome for vertebral lesions. She had CT of the lumbar spine and thoracic spine done with findings of lesions in T11 as well as L4-L5. Patient will be transferred to unit with neurosurgical unit for further evaluation of the possible vertebral osteomyelitis since we are unable to do MRI given her AICD. Also patient will need further work-up per cardiology if symptomatic for acute coronary syndrome. - Physical Exam General: Alert, In no apparent distress, Oriented x3, morbidly obese, lying in supine position HEENT: Atraumatic, PERRLA, Mucous membr. moist/pink, EOMI, Sclerae nonicteric Neck: Supple, 2+ carotid pulse no bruit, No LAD, Without JVD or thyroid abnormality Respiratory: Clear to auscultation bilaterally, Normal air movement Cardiovascular: Regular rate/rhythm, Normal S1 S2 Gastrointestinal: Normal bowel sounds, No tenderness Musculoskeletal: Examination Limited by pain but tenderness in the lumbar spine area Integumentary: No rashes Neurological: Normal speech, power 2 out of 5 bilateral lower extremity/paraparesis, normal in upper extremities, Normal affect Vital Signs/Physical Exam: Temp Pulse Resp BP Pulse Ox 97.4 F 70 16 117/59 L 94 08/21/21 09:57 08/21/21 09:57 08/21/21 09:57 08/21/21 09:57 08/21/21 09:57 Laboratory Data at Discharge: WBC 8.5 K/uL (4.3-10.9) 08/21/21 07:11 Hgb 8.7 g/dL (12.0-15.0) L 08/21/21 07:11 Hct 25.3 % (36.0-45.0) L 08/21/21 07:11 Plt Count 90 K/uL (152-406) L 08/21/21 07:11 PT 12.5 SECONDS (9.5-12.5) 08/20/21 09:30 INR 1.13 08/20/21 09:30 APTT 26.7 SECONDS (24.3-36.9) 08/20/21 09:30 Sodium 130 mmol/L (136-145) L 08/21/21 07:11 Potassium 4.5 mmol/L (3.5-5.1) 08/21/21 07:11 BUN 67 mg/dL (7-18) H 08/21/21 07:11 Creatinine 7.10 mg/dL (0.55-1.3) H* D 08/21/21 07:11 Glucose 217 mg/dL (74-106) H 08/21/21 07:11 Total Bilirubin 0.7 mg/dL (0.2-1.0) 08/21/21 07:11 AST 47 U/L (15-37) H 08/21/21 07:11 ALT 34 U/L (12-78) 08/21/21 07:11 Alkaline Phosphatase 92 U/L (45-117) 08/21/21 07:11 Home Medications: Aspirin [Aspirin EC 81 MG] 81 mg PO DAILY 08/20/21 Atorvastatin Calcium [Lipitor] 20 mg PO BEDTIME 08/20/21 Clopidogrel Bisulfate [Plavix] 75 mg PO DAILY 08/20/21 Insulin NPH Hum/Reg Insulin Hm [Novolin 70-30 100 Unit/ml Vial] 15 unit SQ BID 08/20/21 Lisinopril [Zestril] 2.5 mg PO DAILY 08/20/21 Metoprolol Tartrate 12.5 mg PO BID 08/20/21 Multivitamin [Multiple Vitamins] 1 each PO DAILY 08/20/21 Sitagliptin Phosphate [Januvia] 50 mg PO DAILY 08/20/21 Trazodone [Desyrel] 50 mg PO BEDTIME 08/20/21 Diet: Renal Activity: Weight bearing as tolerated Time spent managing pt's care (in minutes): 35
--- NOTE | 2021-08-21 12:50 | P.PN ---
Subjective Date of Service: 08/21/21 Chief Complaint: NSTEMI Pt is seen on HD, she is reporting feeling cold, mild chills. [facility] did report that BCx they collected Wed do show growth of GPC on prelim report. Pt's BP holding on HD, no hypotension. Physical Examination - Vital Signs Temperature: 97.4 F Blood Pressure: 117/59 Pulse: 70 Respirations: 16 Pulse Ox (%): 94 - Physical Exam General: Alert, In no apparent distress, Oriented x3 HEENT: Atraumatic, Normocephalic, EOMI Neck: Supple Respiratory: Clear to auscultation bilaterally, Normal air movement Cardiovascular: No edema (Rt IJ TDC, Lt UE AVF with thrill and bruit), Regular rate/rhythm, Normal S1 S2 Gastrointestinal: Soft and benign, Non-distended Musculoskeletal: No swelling Integumentary: No rashes, No breakdown Neurological: Normal speech, Normal affect - Studies Laboratory Data (last 24 hrs) 08/21/21 07:11: Sodium 130 L, Potassium 4.5, BUN 67 H, Creatinine 7.10 H* D, Glucose 217 H, Total Bilirubin 0.7, AST 47 H, ALT 34, Alkaline Phosphatase 92 08/21/21 07:11: WBC 8.5, Hgb 8.7 L, Hct 25.3 L, Plt Count 90 L Assessment And Plan - Plan 1. ESRD 2. Gram positive bacteremia, suspected CRBSI. Sepsis without shock. 3. NSTEMI 4. Elevated inflammatory markers 5. Abnormal diagnostic imaging of thoracic and lumbar spine with the possibility of vertebral osteo 6. Anemia 2nd to CKD/inflammation 1. Will plan to dialyze today since treatment could not be performed due to late LHC yesterday. Will perform HD for both metab clearance and UF as tolerated. 2. Will collect BCx 1 from the dialyzer lines today to see if there is sustained bacteremia, will request surgery pull infected TDC post HD for line holiday and source control. Will dose Vanc maintenance dose post HD and monitor levels. 3. Pt will need echo, SUJEY to rule out IE. Case discussed with Dr. Toure and he is seeking to transfer pt for NSGY eval of possible verterbral osteo, other 4. astrobiologist did assess pt's Lt radiocephalic AVF with tourniquet and did not feel it could support two needle stick, so unfortunately pt will need another CVC after line holiday and vascular surgery assessment of AVF as OP Pls call if there are questions, Oliverio Waddell MD, [facility] Physician Review: Patient Assessed, Agree with Above Assessment and Plan
[2021-08-21] MEDS: ATORVASTATIN 20 MG TAB PO SCH (20:40)
[2021-08-21 22:08] VITALS: BP 118/55; TEMP 98.6
--- NOTE | 2021-08-22 20:25 | PN ---
Date of Progress Note: 08/21/2021 Subjective: Seen by bedside. She does not have any chest pain or shortness of breath. No nausea, v omiting, or diarrhea. No orthopnea or cough. All other systems were reviewed and they were negative . Physical Examination: Vital Signs: Reviewed. Head and Neck: Pupils are equal, reactive to light. Intact eye movements. No JVD. No cervical lym phadenopathy. Neck is supple. Thyroid is not enlarged. Lungs: Clear to auscultation bilaterally. No rhonchi, rales, or crackles. No accessory muscle use. Heart: Regular rate and rhythm. No extra sounds. Abdomen: Soft, nontender. Bowel sounds positive. No organomegaly. No masses or hernia. No rigidi ty or rebound. Extremities: No clubbing or cyanosis. Intact pulses. Skin: No rash. Neurologic: Alert, awake. No acute focal deficits appreciated. Investigations: Labs were reviewed. Assessment And Recommendation: 1.[id number] myocardial infarction, status post coronary angiogram. This patient has diffuse coronary artery disease with very small vessels and diffuse 50% stenosis of the left anterior descend ing and 60% diffuse stenosis of the right coronary artery. This could be potentially significantly c ausing ischemia. Her ejection fraction is 30% to 35%. She will need to have an fractional flow rese rve done of the both left anterior descending and right coronary artery, which was not available at [facility]. Patient, however, does not have any critical occlusion of her coronary arteries at this point, and she can potentially be released and follow up as an outpatient and we will arrange for e heart catheterization with fractional flow reserve to be done at [facility] or [place]. 2.Congestive heart failure. Continue diuretics. 3.Hypertension. Blood pressure is acceptable. SR/MODL Voice ID: [id number] Report ID: [id number]
== END 2021-08-21 23:40 | disposition short-term general hospital (02) | DRG 280 ==
LOC: EDBD → 2ND 08-20 00:30
PROVIDERS: ADMIT Internal Medicine; ATTEND Internal Medicine
PROC: B2011ZZ Plain Radiography of Multiple Coronary Arteries using Low Osmolar Contrast (ICD-10-PCS; principal; 2021-08-20)
PROC: 4A023N7 Measurement of Cardiac Sampling and Pressure, Left Heart, Percutaneous Approach (ICD-10-PCS; 2021-08-20)
PROC: 5A1D70Z Performance of Urinary Filtration, Intermittent, Less than 6 Hours Per Day (ICD-10-PCS; 2021-08-21)
DX: T80.211A Bloodstream infection due to central venous catheter, initial encounter (principal); I21.4 Non-ST elevation (NSTEMI) myocardial infarction; N18.6 End stage renal disease; A41.02 Sepsis due to Methicillin resistant Staphylococcus aureus; I13.2 Hypertensive heart and chronic kidney disease with heart failure and with stage 5 chronic kidney disease, or end stage renal disease; I50.22 Chronic systolic (congestive) heart failure; M46.25 Osteomyelitis of vertebra, thoracolumbar region; G82.20 Paraplegia, unspecified; E11.22 Type 2 diabetes mellitus with diabetic chronic kidney disease; D63.1 Anemia in chronic kidney disease; E66.01 Morbid (severe) obesity due to excess calories; Z68.36 Body mass index [BMI] 36.0-36.9, adult; D69.6 Thrombocytopenia, unspecified; E11.69 Type 2 diabetes mellitus with other specified complication; Z99.2 Dependence on renal dialysis; Z95.810 Presence of automatic (implantable) cardiac defibrillator
CPT/HCPCS: 36415; 72128; 72131; 80053; 80202; 81003; 81015; 82947; 84145; 84484; 85025; 85347; 85610; 85730; 86140; 87040; 87077; 87086; 87088; 87186; 87205; 93306; 93458; 93571; 97161; 97530; C1769; C1893; J0692; J1644; J1815; J2250; J2270; J2785; J3010; J3370; J7040; J7050; Q9967